=== PATIENT | male | born 1960 | race Caucasian/White ===

== ENCOUNTER 2019-12-09 09:52 | Outpatient (REF) | payer BC, SELFPAY ==
[2019-12-09 11:35] LABS: Estimated Average Glucose 131 mg/dL; Hemoglobin A1c % 6.2 %
[2019-12-09 11:51] LABS: Alanine Aminotransferase 17 U/L (0-40); Albumin Level 4.4 g/dL (3.5-5.0); Alkaline Phosphatase 55 U/L (39-117); Anion Gap 11 (12-20); Aspartate Amino Transferase 34 U/L (5-37); Bilirubin Total 0.7 mg/dL (0.0-1.0); Blood Urea Nitrogen 19 mg/dL (9-16); Calcium 8.4 mg/dL (8.4-10.2); Carbon Dioxide 28 mmol/L (22-29); Chloride 107 mmol/L (96-108); Cholesterol 157 mg/dL; Estimated Glomerular Filt Rate > 60; Glucose Fasting 124 mg/dL (60-99); HDL Cholesterol 59 mg/dL; LDL Cholesterol Calculated 90 mg/dl; Potassium 4.2 mmol/l (3.3-5.1); Sodium 142 mmol/L (135-145); Total Protein 7.2 g/dL (6.5-8.0); Triglycerides 42 mg/dL
== END 2019-12-09 09:53 | disposition home or self-care (01) ==
LOC: HO.MANLR 09:52
PROVIDERS: PCP Internal Medicine; Visit Provider Internal Medicine
DX: E11.9 Type 2 diabetes mellitus without complications (principal); I10 Essential (primary) hypertension
CPT/HCPCS: 80053; 80061; 83036

== ENCOUNTER 2020-01-02 17:51 | Outpatient (REF) | payer BC, SELFPAY ==
--- NOTE | 2020-01-02 18:15 | MR_ITS ---
EXAMINATION: BRAIN MRI WITHOUT CONTRAST CLINICAL INFORMATION: Tinnitus. Left-sided numbness. Previous history of stroke. COMPARISON: No relevant prior imaging. TECHNIQUE: Multiplanar MR imaging the brain was performed without contrast. FINDINGS: There are numerous foci of T2 FLAIR signal hyperintensity within the periventricular white matter that most likely represent a chronic manifestation of small vessel ischemia. No acute territorial infarct. No pathological magnetic susceptibility artifact. Intracranial vascular flow voids are maintained. There is no mastoid or middle ear effusion. Moderate paranasal sinus disease with near total opacification of the ethmoid air cells. Globes and orbits are symmetric. MR/MR head/brain wo con IMPRESSION: There are scattered chronic small vessel ischemic changes within the periventricular white matter. No evidence of acute territorial infarct or hemorrhage.
== END 2020-01-02 17:52 | disposition home or self-care (01) ==
LOC: HO.MRI 17:51
PROVIDERS: Visit Provider Internal Medicine
DX: I69.90 Unspecified sequelae of unspecified cerebrovascular disease (principal); H93.19 Tinnitus, unspecified ear; R20.0 Anesthesia of skin
CPT/HCPCS: 70551

== ENCOUNTER 2020-07-20 07:38 | Outpatient (REF) | payer BC, SELFPAY ==
[2020-07-20 12:12] LABS: Alanine Aminotransferase 14 U/L (0-40); Albumin Level 4.3 g/dL (3.5-5.0); Alkaline Phosphatase 55 U/L (39-117); Anion Gap 11 (12-20); Aspartate Amino Transferase 34 U/L (5-37); Bilirubin Total 0.4 mg/dL (0.0-1.0); Blood Urea Nitrogen 19 mg/dL (9-16); Calcium 8.7 mg/dL (8.4-10.2); Carbon Dioxide 27 mmol/L (22-29); Chloride 108 mmol/L (96-108); Cholesterol 176 mg/dL; Estimated Glomerular Filt Rate > 60; Glucose Fasting 119 mg/dL (60-99); HDL Cholesterol 60 mg/dL; LDL Cholesterol Calculated 105 mg/dl; Potassium 4.2 mmol/L (3.3-5.1); Sodium 142 mmol/L (135-145); Triglycerides 55 mg/dL
[2020-07-20 12:45] LABS: Prostate Specific Antigen 0.82 ng/mL (<0.05-4.0)
[2020-07-20 13:13] LABS: Estimated Average Glucose 120 mg/dL; Hemoglobin A1c % 5.8 %
== END 2020-07-20 07:39 | disposition home or self-care (01) ==
LOC: HO.MANLDS 07:38
PROVIDERS: PCP Internal Medicine; Visit Provider Internal Medicine
DX: E11.9 Type 2 diabetes mellitus without complications (principal); Z12.5 Encounter for screening for malignant neoplasm of prostate
CPT/HCPCS: 36415; 80053; 80061; 83036; 84153

== ENCOUNTER 2020-11-12 15:00 | Outpatient (REF) | payer BC, SELFPAY ==
[2020-11-12 18:23] LABS: Estimated Average Glucose 148 mg/dL; Hemoglobin A1c % 6.8 %
== END 2020-11-12 15:01 | disposition home or self-care (01) ==
LOC: HO.MANLDS 15:00
PROVIDERS: PCP Internal Medicine; Visit Provider Internal Medicine
DX: E11.9 Type 2 diabetes mellitus without complications (principal)
CPT/HCPCS: 36415; 83036

== ENCOUNTER 2021-02-22 08:55 | Outpatient (REF) | payer BC, SELFPAY ==
[2021-02-22 11:14] LABS: Estimated Average Glucose 180 mg/dL; Hemoglobin A1c % 7.9 %
[2021-02-22 11:40] LABS: Alanine Aminotransferase 23 U/L (0-40); Albumin Level 4.3 g/dL (3.5-5.0); Alkaline Phosphatase 63 U/L (39-117); Anion Gap 13 (12-20); Aspartate Amino Transferase 28 U/L (5-37); Bilirubin Total 0.7 mg/dL (0.0-1.0); Blood Urea Nitrogen 19 mg/dL (9-16); Calcium 9.5 mg/dL (8.4-10.2); Carbon Dioxide 23 mmol/L (22-29); Chloride 107 mmol/L (96-108); Cholesterol 133 mg/dL; Estimated Glomerular Filt Rate > 60; Glucose Fasting 162 mg/dL (60-99); HDL Cholesterol 48 mg/dL; LDL Cholesterol Calculated 74 mg/dl; Potassium 4.1 mmol/L (3.3-5.1); Sodium 139 mmol/L (135-145); Total Protein 7.3 g/dL (6.5-8.0); Triglycerides 55 mg/dL
[2021-02-22 14:35] LABS: Creatinine Urine 91.88 mg/dL; Microalbum/Creatinine Ratio Ur 5.4 ug/mg cr
== END 2021-02-22 08:56 | disposition home or self-care (01) ==
LOC: HO.MANLDS 08:55
PROVIDERS: PCP Internal Medicine; Visit Provider Internal Medicine
DX: E11.9 Type 2 diabetes mellitus without complications (principal)
CPT/HCPCS: 36415; 80053; 80061; 82043; 83036

== ENCOUNTER 2021-05-29 07:52 | Outpatient (REF) | payer BC, SELFPAY ==
[2021-05-29 11:53] LABS: Estimated Average Glucose 163 mg/dL; Hemoglobin A1c % 7.3 %
== END 2021-05-29 07:53 | disposition home or self-care (01) ==
LOC: HO.MANLDS 07:52
PROVIDERS: PCP Internal Medicine; Visit Provider Internal Medicine
DX: E11.9 Type 2 diabetes mellitus without complications (principal)
CPT/HCPCS: 36415; 83036

== ENCOUNTER 2021-09-06 07:34 | Outpatient (REF) | payer BC, SELFPAY ==
[2021-09-06 12:19] LABS: Creatinine Urine 40.06 mg/dL; Microalbumin Urine < 5.0 mg/L
== END 2021-09-06 07:35 | disposition home or self-care (01) ==
LOC: HO.MANLDS 07:34
PROVIDERS: Visit Provider Internal Medicine
DX: E11.9 Type 2 diabetes mellitus without complications (principal)
CPT/HCPCS: 82043

== ENCOUNTER 2021-09-24 07:33 | Outpatient (REF) | payer BC, SELFPAY ==
[2021-09-24 11:20] LABS: Estimated Average Glucose 169 mg/dL; Hemoglobin A1c % 7.5 %
== END 2021-09-24 07:34 | disposition home or self-care (01) ==
LOC: HO.MANLDS 07:33
PROVIDERS: Visit Provider Internal Medicine
DX: E11.9 Type 2 diabetes mellitus without complications (principal)
CPT/HCPCS: 36415; 83036

== ENCOUNTER 2021-12-13 07:58 | Outpatient (REF) | payer BC, SELFPAY ==
[2021-12-13 11:58] LABS: Estimated Average Glucose 166 mg/dL; Hemoglobin A1c % 7.4 %
== END 2021-12-13 07:59 | disposition home or self-care (01) ==
LOC: HO.MANLDS 07:58
PROVIDERS: Visit Provider Internal Medicine
DX: E11.9 Type 2 diabetes mellitus without complications (principal)
CPT/HCPCS: 36415; 83036

== ENCOUNTER 2022-03-17 07:53 | Outpatient (REF) | payer BC, SELFPAY ==
[2022-03-17 12:04] LABS: Estimated Average Glucose 246 mg/dL; Hemoglobin A1c % 10.2 %
== END 2022-03-17 07:54 | disposition home or self-care (01) ==
LOC: HO.MANLDS 07:53
PROVIDERS: Visit Provider Internal Medicine
DX: E11.9 Type 2 diabetes mellitus without complications (principal)
CPT/HCPCS: 36415; 83036

== ENCOUNTER 2022-07-08 16:20 | Outpatient (REF) | payer BC, SELFPAY ==
[2022-07-08 17:50] LABS: Estimated Average Glucose 148 mg/dL; Hemoglobin A1c % 6.8 %
[2022-07-08 18:33] LABS: Alanine Aminotransferase 14 U/L (0-40); Albumin Level 4.1 g/dL (3.5-5.0); Alkaline Phosphatase 54 U/L (39-117); Anion Gap 11 (12-20); Aspartate Amino Transferase 24 U/L (5-37); Bilirubin Total 0.3 mg/dL (0.0-1.0); Blood Urea Nitrogen 18 mg/dL (9-16); Carbon Dioxide 28 mmol/L (22-29); Chloride 105 mmol/L (96-108); Estimated Glomerular Filt Rate > 60; Glucose Random 231 mg/dL (60-115); Potassium 3.9 mmol/L (3.3-5.1); Sodium 140 mmol/L (135-145); Total Protein 6.8 g/dL (6.5-8.0)
[2022-07-08 18:34] LABS: Creatinine Urine 28.66 mg/dL; Microalbumin Urine < 5.0 mg/L
== END 2022-07-08 16:21 | disposition home or self-care (01) ==
LOC: HO.MANLDS 16:20
PROVIDERS: Visit Provider Internal Medicine
DX: E11.9 Type 2 diabetes mellitus without complications (principal)
CPT/HCPCS: 36415; 80053; 82043; 83036

== ENCOUNTER 2022-07-11 07:45 | Outpatient (REF) | payer BC, SELFPAY ==
[2022-07-11 12:22] LABS: Cholesterol 179 mg/dL; HDL Cholesterol 59 mg/dL; LDL Cholesterol Calculated 108 mg/dl; Triglycerides 63 mg/dL
== END 2022-07-11 07:46 | disposition home or self-care (01) ==
LOC: HO.MANLDS 07:45
PROVIDERS: Visit Provider Internal Medicine
DX: E11.9 Type 2 diabetes mellitus without complications (principal)
CPT/HCPCS: 36415; 80061

== ENCOUNTER 2022-10-27 08:23 | Outpatient (REF) | payer BC, SELFPAY ==
[2022-10-27 15:15] LABS: Estimated Average Glucose 197 mg/dL; Hemoglobin A1c % 8.5 % (<6.0)
== END 2022-10-27 08:24 | disposition home or self-care (01) ==
LOC: HO.MANLDS 08:23
PROVIDERS: Visit Provider Internal Medicine
DX: E11.9 Type 2 diabetes mellitus without complications (principal)
CPT/HCPCS: 36415; 83036

== ENCOUNTER 2022-12-26 07:32 | Outpatient (REF) | payer BC, SELFPAY ==
[2022-12-26 13:26] LABS: MANUAL DIFF FLAG NO
[2022-12-26 13:40] LABS: Basophils Absolute Auto 0.1 X10*3/uL (0.0-0.2); Basophils Percent Auto 1.3 % (0-2); Eosinophils Absolute Auto 0.1 X10*3/uL (0.0-0.4); Eosinophils Percent Auto 2.2 % (0-4); Hematocrit 41.5 % (42.0-52.0); Hemoglobin 13.8 g/dl (14.0-18.0); Imm Gran Abs Auto 0.01 X10*3/uL (0.00-0.03); Imm Gran Pct Auto 0.2 % (0.0-0.4); Lymphocytes Absolute Auto 1.7 X10*3/uL (1.2-4.9); Lymphocytes Percent Auto 30.7 % (20-40); Mean Corpuscular HGB Conc 33.3 g/dl (31.0-36.0); Mean Corpuscular Hemoglobin 29.8 pg (27.0-33.0); Mean Corpuscular Volume 89.6 fL (80.0-98.0); Mean Platelet Volume 10.2 fL (9.4-12.4); Monocytes Absolute Auto 0.4 X10*3/uL (0.1-1.2); Monocytes Percent Auto 6.7 % (2-11); Neutrophils Absolute Auto 3.3 x10*3/uL (2.0-8.3); Neutrophils Percent Auto 58.9 % (45-73); Platelet Count 189 X10*3/uL (160-400); Red Blood Count 4.63 X10*6/uL (4.60-5.80); Red Cell Distribution Width 12.7 % (11.0-16.0); White Blood Count 5.5 X10*3/uL (4.8-10.8)
[2022-12-26 14:21] LABS: Alanine Aminotransferase 14 U/L (0-40); Albumin Level 4.3 g/dL (3.5-5.0); Alkaline Phosphatase 52 U/L (39-117); Anion Gap 13 (12-20); Aspartate Amino Transferase 31 U/L (5-37); Bilirubin Total 0.6 mg/dL (0.0-1.0); Blood Urea Nitrogen 21 mg/dL (9-16); Calcium 9.2 mg/dL (8.4-10.2); Carbon Dioxide 26 mmol/L (22-29); Chloride 105 mmol/L (96-108); Cholesterol 164 mg/dL (<200); Estimated Glomerular Filt Rate > 60; Glucose Random 152 mg/dL (60-115); HDL Cholesterol 49 mg/dL (>40); LDL Cholesterol Calculated 104 mg/dL (<100); Potassium 4.1 mmol/L (3.3-5.1); Sodium 140 mmol/L (135-145); Total Protein 7.3 g/dL (6.5-8.0); Triglycerides 56 mg/dL (<150)
[2022-12-26 14:28] LABS: Creatinine Urine 71.25 mg/dL; Microalbumin Urine < 5.0 mg/L
[2022-12-26 16:13] LABS: Estimated Average Glucose 177 mg/dL; Hemoglobin A1c % 7.8 % (<6.0)
== END 2022-12-26 07:33 | disposition home or self-care (01) ==
LOC: HO.MANLDS 07:32
PROVIDERS: Visit Provider Internal Medicine
DX: E11.9 Type 2 diabetes mellitus without complications (principal); E78.00 Pure hypercholesterolemia, unspecified
CPT/HCPCS: 36415; 80053; 80061; 82043; 82570; 83036; 85025

== ENCOUNTER 2023-03-04 07:34 | Outpatient (REF) | payer BC, SELFPAY ==
[2023-03-04 12:44] LABS: MANUAL DIFF FLAG NO
[2023-03-04 12:48] LABS: Basophils Absolute Auto 0.1 X10*3/uL (0.0-0.2); Basophils Percent Auto 1.1 % (0-2); Eosinophils Absolute Auto 0.2 X10*3/uL (0.0-0.4); Eosinophils Percent Auto 3.8 % (0-4); Hematocrit 39.8 % (42.0-52.0); Hemoglobin 13.2 g/dl (14.0-18.0); Imm Gran Abs Auto 0.01 X10*3/uL (0.00-0.03); Imm Gran Pct Auto 0.2 % (0.0-0.4); Lymphocytes Absolute Auto 1.4 X10*3/uL (1.2-4.9); Lymphocytes Percent Auto 29.3 % (20-40); Mean Corpuscular HGB Conc 33.2 g/dl (31.0-36.0); Mean Corpuscular Hemoglobin 29.6 pg (27.0-33.0); Mean Corpuscular Volume 89.2 fL (80.0-98.0); Mean Platelet Volume 10.6 fL (9.4-12.4); Monocytes Absolute Auto 0.4 X10*3/uL (0.1-1.2); Monocytes Percent Auto 8.1 % (2-11); Neutrophils Absolute Auto 2.7 x10*3/uL (2.0-8.3); Neutrophils Percent Auto 57.5 % (45-73); Platelet Count 197 X10*3/uL (160-400); Red Blood Count 4.46 X10*6/uL (4.60-5.80); Red Cell Distribution Width 12.8 % (11.0-16.0); White Blood Count 4.7 X10*3/uL (4.8-10.8)
[2023-03-04 13:01] LABS: Estimated Average Glucose 171 mg/dL; Hemoglobin A1c % 7.6 % (<6.0)
[2023-03-04 13:14] LABS: Alanine Aminotransferase 52 U/L (0-40); Albumin Level 4.3 g/dL (3.5-5.0); Alkaline Phosphatase 51 U/L (39-117); Anion Gap 14 (12-20); Aspartate Amino Transferase 69 U/L (5-37); Bilirubin Total 0.3 mg/dL (0.0-1.0); Blood Urea Nitrogen 26 mg/dL (9-16); Calcium 9.4 mg/dL (8.4-10.2); Carbon Dioxide 23 mmol/L (22-29); Chloride 107 mmol/L (96-108); Cholesterol 157 mg/dL (<200); Estimated Glomerular Filt Rate > 60; Glucose Random 181 mg/dL (60-115); HDL Cholesterol 48 mg/dL (>40); LDL Cholesterol Calculated 92 mg/dL (<100); Sodium 140 mmol/L (135-145); Total Protein 7.3 g/dL (6.5-8.0); Triglycerides 88 mg/dL (<150)
== END 2023-03-04 07:35 | disposition home or self-care (01) ==
LOC: HO.MANLDS 07:34
PROVIDERS: Visit Provider Internal Medicine
DX: E11.9 Type 2 diabetes mellitus without complications (principal); E78.00 Pure hypercholesterolemia, unspecified
CPT/HCPCS: 36415; 80053; 80061; 83036; 85025

== ENCOUNTER 2023-03-27 07:47 | Outpatient (REF) | payer BC, SELFPAY ==
[2023-03-27 13:01] LABS: Alanine Aminotransferase 257 U/L (0-40); Albumin Level 4.2 g/dL (3.5-5.0); Alkaline Phosphatase 59 U/L (39-117); Aspartate Amino Transferase 221 U/L (5-37); Bilirubin Direct 0.2 mg/dL (0.0-0.5); Bilirubin Total 0.3 mg/dL (0.0-1.0); Total Protein 7.2 g/dL (6.5-8.0)
== END 2023-03-27 07:48 | disposition home or self-care (01) ==
LOC: HO.MANLDS 07:47
PROVIDERS: Visit Provider Internal Medicine
DX: R74.01 Elevation of levels of liver transaminase levels (principal)
CPT/HCPCS: 36415; 80076

== ENCOUNTER 2023-04-07 09:49 | Outpatient (REF) | payer BC, SELFPAY ==
[2023-04-07 14:22] LABS: Alanine Aminotransferase 192 U/L (0-40); Albumin Level 4.2 g/dL (3.5-5.0); Alkaline Phosphatase 61 U/L (39-117); Aspartate Amino Transferase 137 U/L (5-37); Bilirubin Direct 0.1 mg/dL (0.0-0.5); Bilirubin Total 0.3 mg/dL (0.0-1.0); Iron 51 mcg/dL (45-160); Percent Iron Saturation 19 % (15-50); Total Iron Binding Capacity 264 mcg/dL (228-428); Total Protein 7.1 g/dL (6.5-8.0); Unsaturated Iron Binding 213 ug/dL
[2023-04-07 14:28] LABS: Ferritin 82 ng/mL (20-250)
== END 2023-04-07 09:50 | disposition home or self-care (01) ==
LOC: HO.MANLDS 09:49
PROVIDERS: Visit Provider Internal Medicine
DX: R74.01 Elevation of levels of liver transaminase levels (principal)
CPT/HCPCS: 36415; 80076; 82728; 83540

== ENCOUNTER 2023-04-22 07:58 | Outpatient (REF) | payer BC, SELFPAY ==
[2023-04-22 13:32] LABS: Alanine Aminotransferase 65 U/L (0-40); Albumin Level 4.3 g/dL (3.5-5.0); Alkaline Phosphatase 59 U/L (39-117); Aspartate Amino Transferase 59 U/L (5-37); Bilirubin Direct 0.2 mg/dL (0.0-0.5); Bilirubin Total 0.6 mg/dL (0.0-1.0); Total Protein 7.6 g/dL (6.5-8.0)
[2023-04-22 15:07] LABS: Estimated Average Glucose 146 mg/dL; Hemoglobin A1c % 6.7 % (<6.0)
== END 2023-04-22 07:59 | disposition home or self-care (01) ==
LOC: HO.MANLDS 07:58
PROVIDERS: Visit Provider Internal Medicine
DX: E11.9 Type 2 diabetes mellitus without complications (principal)
CPT/HCPCS: 36415; 80076; 83036

== ENCOUNTER 2023-04-29 08:01 | Outpatient (REF) | payer BC, SELFPAY ==
[2023-04-29 13:39] LABS: Alanine Aminotransferase 35 U/L (0-40); Albumin Level 4.3 g/dL (3.5-5.0); Alkaline Phosphatase 55 U/L (39-117); Aspartate Amino Transferase 41 U/L (5-37); Bilirubin Direct 0.1 mg/dL (0.0-0.5); Bilirubin Total 0.3 mg/dL (0.0-1.0); Total Protein 7.2 g/dL (6.5-8.0)
== END 2023-04-29 08:02 | disposition home or self-care (01) ==
LOC: HO.MANLDS 08:01
PROVIDERS: Visit Provider Internal Medicine
DX: R74.01 Elevation of levels of liver transaminase levels (principal)
CPT/HCPCS: 36415; 80076

== ENCOUNTER 2023-06-23 09:57 | Outpatient (REF) | payer BC, SELFPAY ==
[2023-06-23 13:41] LABS: Estimated Average Glucose 143 mg/dL; Hemoglobin A1c % 6.6 % (<6.0)
== END 2023-06-23 09:58 | disposition home or self-care (01) ==
LOC: HO.MANLDS 09:57
PROVIDERS: Visit Provider Internal Medicine
DX: E11.9 Type 2 diabetes mellitus without complications (principal); R74.01 Elevation of levels of liver transaminase levels
CPT/HCPCS: 36415; 83036

== ENCOUNTER 2023-08-12 14:30 | Outpatient (REF) | payer BC, SELFPAY ==
[2023-08-12 16:08] LABS: MANUAL DIFF FLAG NO
[2023-08-12 16:14] LABS: Basophils Absolute Auto 0.1 X10*3/uL (0.0-0.2); Basophils Percent Auto 0.9 % (0-2); Eosinophils Absolute Auto 0.2 X10*3/uL (0.0-0.4); Eosinophils Percent Auto 2.4 % (0-4); Hematocrit 38.8 % (42.0-52.0); Hemoglobin 13.2 g/dl (14.0-18.0); Imm Gran Abs Auto 0.01 X10*3/uL (0.00-0.03); Imm Gran Pct Auto 0.1 % (0.0-0.4); Lymphocytes Absolute Auto 1.9 X10*3/uL (1.2-4.9); Lymphocytes Percent Auto 28.1 % (20-40); Mean Corpuscular Hemoglobin 30.6 pg (27.0-33.0); Mean Corpuscular Volume 89.8 fL (80.0-98.0); Mean Platelet Volume 10.5 fL (9.4-12.4); Monocytes Absolute Auto 0.4 X10*3/uL (0.1-1.2); Monocytes Percent Auto 6.1 % (2-11); Neutrophils Absolute Auto 4.2 x10*3/uL (2.0-8.3); Neutrophils Percent Auto 62.4 % (45-73); Platelet Count 205 X10*3/uL (160-400); Red Blood Count 4.32 X10*6/uL (4.60-5.80); White Blood Count 6.7 X10*3/uL (4.8-10.8)
[2023-08-12 16:37] LABS: Alanine Aminotransferase 16 U/L (0-40); Albumin Level 4.4 g/dL (3.5-5.0); Alkaline Phosphatase 54 U/L (39-117); Anion Gap 12 (12-20); Aspartate Amino Transferase 27 U/L (5-37); Bilirubin Total 0.2 mg/dL (0.0-1.0); Blood Urea Nitrogen 21 mg/dL (9-16); Calcium 9.8 mg/dL (8.4-10.2); Carbon Dioxide 27 mmol/L (22-29); Chloride 104 mmol/L (96-108); Estimated Glomerular Filt Rate > 60; Glucose Random 279 mg/dL (60-115); Potassium 4.2 mmol/L (3.3-5.1); Sodium 139 mmol/L (135-145); Total Protein 7.5 g/dL (6.5-8.0)
[2023-08-12 17:16] LABS: Erythrocyte Sedimentation Rate 10 MM/HR (0-15)
== END 2023-08-12 14:31 | disposition home or self-care (01) ==
LOC: HO.MANLDS 14:30
PROVIDERS: Visit Provider Internal Medicine
DX: K57.32 Diverticulitis of large intestine without perforation or abscess without bleeding (principal)
CPT/HCPCS: 36415; 80053; 85025; 85652

== ENCOUNTER 2023-11-13 07:46 | Outpatient (REF) | payer BC, SELFPAY ==
[2023-11-13 13:35] LABS: Estimated Average Glucose 249 mg/dL; Hemoglobin A1C 318.9649 umol/L; Hemoglobin A1c % 10.3 % (<6.0); Total Hemoglobin (HGBA1C) 3601.7119 umol/L
== END 2023-11-13 07:47 | disposition home or self-care (01) ==
LOC: HO.MANLDS 07:46
PROVIDERS: Visit Provider Internal Medicine
DX: E11.9 Type 2 diabetes mellitus without complications (principal)
CPT/HCPCS: 36415; 83036

== ENCOUNTER 2024-06-15 14:51 | Outpatient (REF) | payer BC, SELFPAY ==
--- OUTSIDE RECORDS SUMMARY | 2024-06-15 15:58 | XMS_ITS | Data Portability ---
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) [facility] MODERATE MUST MEET 2 OUT OF 3 ELEMENTS: PROBLEMS, DATA OR RISK ELEMENT 1: PROBLEMS ADDRESSED 1 OR MORE CHRONIC ILLNESS WITH EXACERBATION OR 2 OR MORE STABLE CHRONIC ILLNESSES OR 1 UNDIAGNOSED NEW PROBLEM OR 1 ACUTE ILLNESS W/SYMPTOMS OR 1 ACUTE COMPLICATED INJURY ELEMENT 2: DATA MUST MEET 1 OF 3 CATEGORIES CATEGORY 1: REVIEW OF PRIOR EXTERNAL NOTES, REVIEW OF RESULTS, ORDERING OF EACH TEST, ASSESSMENT REQUIRING INDEPENDENT HISTORIAN OR CATEGORY 2: INDEPENDENT INTERPRETATION OF TESTS BY ANOTHER PHYSICIAN OR SPECIALIST OR CATEGORY 3: DISCUSSION OF MGT OR TEST INTERPRETATION W/EXTERNAL PHYSICIAN OR SPECIALIST ELEMENT 3: RISK RISK OF COMPLICATIONS AND/OR MORBIDITY OR MORTALITY OF PATIENT MANAGEMENT PROVIDER MUST THOROUGHLY DOCUMENT EACH ELEMENT THAT IS COVERED Not available 06/23/2023 09:47:26 10/28/2023 10/28/2023 [id number] [place] [address] (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) [facility] MODERATE MUST MEET 2 OUT OF 3 ELEMENTS: PROBLEMS, DATA OR RISK ELEMENT 1: PROBLEMS ADDRESSED 1 OR MORE CHRONIC ILLNESS WITH EXACERBATION OR 2 OR MORE STABLE CHRONIC ILLNESSES OR 1 UNDIAGNOSED NEW PROBLEM OR 1 ACUTE ILLNESS W/SYMPTOMS OR 1 ACUTE COMPLICATED INJURY ELEMENT 2: DATA MUST MEET 1 OF 3 CATEGORIES CATEGORY 1: REVIEW OF PRIOR EXTERNAL NOTES, REVIEW OF RESULTS, ORDERING OF EACH TEST, ASSESSMENT REQUIRING INDEPENDENT HISTORIAN OR CATEGORY 2: INDEPENDENT INTERPRETATION OF TESTS BY ANOTHER PHYSICIAN OR SPECIALIST OR CATEGORY 3: DISCUSSION OF MGT OR TEST INTERPRETATION W/EXTERNAL PHYSICIAN OR SPECIALIST ELEMENT 3: RISK RISK OF COMPLICATIONS AND/OR MORBIDITY OR MORTALITY OF PATIENT MANAGEMENT PROVIDER MUST THOROUGHLY DOCUMENT EACH ELEMENT THAT IS COVERED Not available 10/28/2023 16:02:26 03/02/2024 03/02/2024 [address] [place] [address] (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) [facility] MODERATE MUST MEET 2 OUT OF 3 ELEMENTS: PROBLEMS, DATA OR RISK ELEMENT 1: PROBLEMS ADDRESSED 1 OR MORE CHRONIC ILLNESS WITH EXACERBATION OR 2 OR MORE STABLE CHRONIC ILLNESSES OR 1 UNDIAGNOSED NEW PROBLEM OR 1 ACUTE ILLNESS W/SYMPTOMS OR 1 ACUTE COMPLICATED INJURY ELEMENT 2: DATA MUST MEET 1 OF 3 CATEGORIES CATEGORY 1: REVIEW OF PRIOR EXTERNAL NOTES, REVIEW OF RESULTS, ORDERING OF EACH TEST, ASSESSMENT REQUIRING INDEPENDENT HISTORIAN OR CATEGORY 2: INDEPENDENT INTERPRETATION OF TESTS BY ANOTHER PHYSICIAN OR SPECIALIST OR CATEGORY 3: DISCUSSION OF MGT OR TEST INTERPRETATION W/EXTERNAL PHYSICIAN OR SPECIALIST ELEMENT 3: RISK RISK OF COMPLICATIONS AND/OR MORBIDITY OR MORTALITY OF PATIENT MANAGEMENT PROVIDER MUST THOROUGHLY DOCUMENT EACH ELEMENT THAT IS COVERED Not available 03/02/2024 16:29:48 Plan of Treatment Reminders Order Date Submit Date Provider Last Modified By Organization Details Last Modified Time Details Appointments INJECTION 2024 03:00P M DR PUTNAM Not available Not available Not available Lab HbA1c (hemoglob in A1c), blood 2023 024 [facility], [address] [place] [address], [place], [address], 10/28/2023 16:09:08 CBC w/ auto diff 2023 024 [facility], [address] [place] [address], [address], 08/13/2023 11:05:35 ESR (erythroc yte sedimenta tion rate), blood 2023 024 [facility], [address] [place] [address], [place], [address], 08/12/2023 14:36:29 CMP, serum or plasma 2023 024 [facility], [address] [place] [address], [address], 08/13/2023 11:05:35 Referral general surgeon referral - new onset while shoveling 2023 024 [email or web address] A Malvin Chiu, [address], [address], [place], [address], 06/24/2023 08:25:19 Procedures None recorded. Surgeries None recorded. Imaging CT, abdomen, w/ contrast - Not Required Procedure codes: [id number] Reference #: [id number] 1Resoluti on: Completed on 4 at 04:43 pm. Call ref #[id number] 11. 2023 024 [email or web address] Not available 09/11/2023 09:52:55 Medication Orders ciproflox acin 500 mg tablet 2023 024 [facility] [employer] [id number], [address] [place], [place], [id number], 08/28/2023 16:02:49 metronida zole 500 mg tablet 2023 024 [id number], [address] [place], [place], [id number], 08/28/2023 16:02:47 Patient TargetsNo targets recorded. Patient InstructionsNo instructions recorded. Reason for Referral General Surgeon Referral for Right inguinal hernia new onset while shoveling Referring Physician: Allen Putnam, Internal Medicine, Encounter Date: 06/23/2023 Results Created Date Observation Date Name Description Value Unit Range Abnormal Flag Note LastModifiedBy Organization Detail LastModifiedTime 11/13/1911/13/2023 HbA1c (hemo globi n A1c), blood A1C 10.3 abnormal Not Available [facility] (Medical Records) [address] [facility], [place], [address], 11/16/2023 15:14:13 10/29/19 24 10/26/2023 CT, abdom en, w/ contr ast No observ ation record ed. [facility] [address], [place], [address], 10/30/2023 08:41:38 Result Notes None recorded. Problems Name Problem SNOMED Code Status Onset Date Resolution Date Notes Provider Name and Address Organization Details Recorded Time Primary erectile dysfunct ion 633167835 Active 2017 Not Available [facility] 13:19:53 Labile hyperten arvind due to being in a clinical environm ent 625638278 Active 2019 Not Available [facility] 13:19:53 Hypercho lesterol emia 75420895 Active 2021 Allen Putnam, DO [address] [place] [address], [phone], [facility] 2 17:00:22 Acute sinusiti s 91555162 Completed 202203/09/2023 Allen Putnam DO [address] [place] [address], [phone], [facility] 4 12:28:54 Headache 69822758 Completed 202203/09/2023 Allen Putnam, DO [address] [place] [address], [phone], [facility] 4 12:28:49 Cervical spine sprain 65334141227 108 Completed 202203/09/2023 Allen Putnam DO [address] [place] [address], [phone], [facility] 4 12:28:42 Liver enzymes level above referenc e range 036355793 Active 2023 Allen Putnam, DO [address] [place] [address], [address], [facility] 4 12:29:32 Hyperten sive disorder 94589993 Active 2017 Not Available [facility] 13:19:53 Diabetes mellitus 64901569 Active 2017 Not Available [facility] 13:19:53 Cerebrov ascular accident 387415033 Active 2017 Not Available [facility] 1 13:19:53 Right inguinal hernia 845694885 Active 2023 Allen Still Luiseboni, DO [address] [place], [address], [facility] 4 09:49:06 Divertic ulitis of colon 580374047 Active 2023 Allen Still Kristel, DO [address] [place], [address], [facility] 4 14:22:32 Abdomina l pain 97648619 Active 2023 Allen Still Kristel, [address] [place], [address], [facility] 4 16:39:40 Problem Notes None recorded. Procedures Surgical History None recorded. Imaging Results Imaging Date Name Status LastModified by Organiz ation Details LastModified Time 10/26/2023 CT, abdomen, w/ contrast completed [facility] [address] [place], [address], 10/30/2023 08:41:38 Procedure Notes None recorded. Medical Equipment None Reported. Allergies No known drug allergies Medications Name Sig Start Date Stop Date Status Note LastModified by Organization Details LastModified Time Prescriptio n - Prior Authorizati on Request 08/28 completed Not Available Not Available Not Available atorvastati n 40 mg tablet 05/22 completed Not Available Not Available Not Available metformin 500 mg tablet take 1 tablet once day 11/05 completed Not Available Not Available Not Available atorvastati n 80 mg tablet TAKE 1 TABLET(80 MG) BY MOUTH DAILY 12/11 completed Not Available Not Available Not Available sildenafil 50 mg tablet 11/06 completed Not Available Not Available Not Available atorvastati n 10 mg tablet TAKE 1 TABLET BY MOUTH EVERY DAY 04/13 completed Not Available Not Available Not Available hydrocodone 5 mg-acetamin ophen 325 mg tablet 07/26 completed Not Available Not Available Not Available meloxicam 15 mg tablet 03/08 completed Not Available Not Available Not Available metronidazo le 500 mg tablet TAKE 1 TABLET BY MOUTH EVERY 8 HOURS FOR 7 DAYS 08/27 completed Not Available Not Available Not Available amlodipine 5 mg tablet TAKE 1 TABLET BY MOUTH EVERY DAY 06/03 completed Not Available Not Available Not Available ciprofloxac in 500 mg tablet TAKE 1 TABLET BY MOUTH EVERY 12 HOURS FOR 10 DAYS 08/27 completed Not Available Not Available Not Available sildenafil 100 mg tablet Take 1 tablet every day by oral route as needed. 11/06 completed Not Available Not Available Not Available butalbital- acetaminoph en-caffeine 50 mg-325 mg-40 mg tablet TAKE 1 TABLET BY MOUTH EVERY 4 HOURS FOR 3 DAYS NEEDED 01/07 completed Not Available Not Available Not Available oxycodone-a cetaminophe n 5 mg-325 mg tablet 02/17 completed Not Available Not Available Not Available amlodipine 10 mg tablet TAKE 1 TABLET BY MOUTH EVERY DAY active Not Available Not Available No t Available doxycycline monohydrate 100 mg capsule TAKE 2 CAPSULES BY MOUTH ONCE FOR 1 DOSE. TAKE WITH FOOD. USE RESERVE PILLS FOR FUTURE TICK BITES active Not Available Not Available No t Available metformin 1,000 mg tablet TAKE 1 TABLET BY MOUTH TWICE DAILY active Not Available Not Available No t Available diclofenac sodium 75 mg tablet,adam yed release Take 1 tablet twice a day by oral route for 10 days. 06/03 completed Not Available Not Available Not Available lisinopril 5 mg tablet Take 1 tablet every day by oral route for 30 days. 03/18 completed Not Available Not Available Not Available Baby Aspirin 81 mg chewable tablet Chew 1 tablet every day by oral route. active Not Available Not Available No t Available amoxicillin 875 mg-potassiu m clavulanate 125 mg tablet TAKE 1 TABLET BY MOUTH EVERY 12 HOURS FOR 10 DAYS 11/05 completed Not Available Not Available Not Available oxycodone 5 mg tablet 10/27 completed Not Available Not Available Not Available tadalafil 20 mg tablet TAKE 1 TABLET BY MOUTH ONCE DAILY NEEDED active Not Available Not Available No t Available sildenafil (bulk) 100 % powder 10/07 completed Not Available Not Available Not Available FreeStyle Lite Strips Take 1 strip every day by miscell. route for 25 days. 03/18 completed Not Available Not Available Not Available GaviLyte-G 236 gram-22.74 gram-6.74 gram-5.86 gram oral solution 10/01 completed Not Available Not Available Not Available AndroGel 1.62 % (40.5 mg/2.5 gram) transdermal gel packet Apply 1 packet every day by topical route for 30 days. 08/28 completed Not Available Not Available Not Available AndroGel 1.62 % (20.25 mg/1.25 gram) transdermal gel packet APPLY 1 PACKET BY TOPICAL ROUTE ONCE DAILY FOR 30 DAYS 08/28 completed Not Available Not Available Not Available Vitals Date Recorded Body height Body mass index (BMI) Body weight Heart rate Respiratory rate Oxygen saturation Oxygen saturation in Arterial blood by Pulse oximetry Systolic blood pressure Diastolic blood pressure Provider Name and Address Organization Details Last Updated DateTime 4 175.26 cm 28.9 kg/m2 14857.1 g 74 /min 18 /min 96 % 96 % 136 mm[Hg] 80 mm[Hg] Jason Castaneda [facility] 4 09:28:08 Date Recorded Body height Body mass index (BMI) Body weight Heart rate Oxygen saturation Oxygen saturation in Arterial blood by Pulse oximetry Systolic blood pressure Diastolic blood pressure Provider Name and Address Organization Details Last Updated DateTime 4 175.26 cm 29.5 kg/m2 59707.4 7 g 79 /min 97 % 97 % 140 mm[Hg] 70 mm[Hg] Betzy Howard [facility] 4 13:49:51 Date Recorded Body height Body mass index (BMI) Body weight Heart rate Oxygen saturation Oxygen saturation in Arterial blood by Pulse oximetry Systolic blood pressure Diastolic blood pressure Provider Name and Address Organization Details Last Updated DateTime 4 175.26 cm 31.6 kg/m2 93976.7 7 g 69 /min 95 % 95 % 136 mm[Hg] 82 mm[Hg] Shari Christina [facility] 4 16:08:57 Date Recorded Body height Body mass index (BMI) Body weight Heart rate Oxygen saturation Oxygen saturation in Arterial blood by Pulse oximetry Systolic blood pressure Diastolic blood pressure Provider Name and Address Organization Details Last Updated DateTime 4 175.26 cm 29.5 kg/m2 79258.4 7 g 76 /min 98 % 98 % 126 mm[Hg] 76 mm[Hg] Jasonlouise Castaneda [facility] 4 15:53:54 Date Recorded Body height Body mass index (BMI) Body weight Oxygen saturation Oxygen saturation in Arterial blood by Pulse oximetry Heart rate Systolic blood pressure Diastolic blood pressure Provider Name and Address Organization Details Last Updated DateTime 5 175.26 cm 29.5 kg/m2 38383.4 7 g 96 % 96 % 76 /min 120 mm[Hg] 70 mm[Hg] Betzy Lovemond [facility] 5 16:06:21 Social History Question Answer Notes LastModified by Organizat ion Details LastModified Time Tobacco Smoking Status Former Smoker Not Available [facility] 12/13/2019 03:36:23 What Was The Date Of Your Most Recent Tobacco Screening? 03/02/2024 [email or web address] Information not available 03/02/2024 Do You Or Have You Ever Used Any Other Forms Of Tobacco Or Nicotine? No Information not available 12/11/2021 Sex: Unknown Functional Status None recorded. Mental Status None recorded. Family History Nothing Reported. Medical History No medical history recorded. Immunizations Vaccine Type Date Status Note Provider Nam e and Address Organization Details Recorded Time COVID-19, mRNA, LNP-S, PF, 30 mcg/0.3 mL dose 1 completed Not Available [facility] 01/27/2021 17:59:45 COVID-19, mRNA, LNP-S, PF, 30 mcg/0.3 mL dose 1 completed Allen Putnam, [address] [place] [address], [address], [facility] 06/03/2021 15:57:22 COVID-19, mRNA, LNP-S, PF, 30 mcg/0.3 mL dose 1 completed Allen Putnam DO [address] [place] [address], [address], [facility] 06/03/2021 15:57:28 Tdap 9 completed Allen Putnam DO [address] [place], [address], [facility] 06/03/2021 15:57:42 Influenza, split virus, quadrivalent, preservative 2 completed Allen Still Kristel, [address] [place] [address], [address], [facility] 12/11/2021 16:43:01 COVID-19, mRNA, LNP-S, PF, 30 mcg/0.3 mL dose 2 completed Allen Still Kristel [address] [place], [address], [facility] 12/11/2021 16:43:10 Past Encounters Encounter ID Performer Location Encounter Start Date Encounter Closed Date Diagnosis/Indication Diagnosis SNOMED-CT Code Diagnosis ICD10 Code Diagnosis Note [id number] Allen Putnam [facility] [address] [place] [address], [place] [address] 05/22/2017 10:26:37 05/22/2017 12:26:35 Diabetes mellitus 44720226 E11.9 waiting for a1c results Hypertensive disorder 38 231347 I10 home bp are excellent remain stable Cerebrovas cular accident 709834934 I63.9 still having issues with left parasthesi a Primary er ectile dysfunction 700054217 N52.1 [id number] Allen Putnam [facility] [address] [place] [address],[place] [address] 08/28/2017 14:26:57 08/28/2017 16:40:00 Cerebrovascular accident 686562069 I63.9 now feels good no issues active vigorous and with out major issue Hypogonadism 46419488 E2 9.1 will repeat level [id number] Allen Putnam [facility] [address] [place] [address], [place] [address] 10/05/2017 13:40:06 10/05/2017 14:29:11 Hypertensive disorder 88751073 I10 home bp are excellent remain stable will discontinu e the lisinopril and increase the amlodipine to 10mg Diabetes mellitus 899669 09 E11.9 a1c is 5.8 doing markedly well with 80 lb wgt loss will stop metformin and rechk in 3 mo Primary er ectile dysfunction 149597377 N52.1 will repeat the testostero ne and see if there is a drop as would be expected will try viagra 50mg [id number] Allen Putnam [facility] [address] [facility] [address],[place] [address] 11/06/2017 13:47:54 11/06/2017 14:16:52 Renewal of prescription 298883482 Z76.0 Primary er ectile dysfunction 909782583 N52.1 will plan to have pt see dr esthela pitts or wm saha as his ED is still having a major issue will hve him checked out his testostero ne level remained in 300's Hypertensive disorder 38 555762 I10 the amlodipine at10mg is working very well states is doing good but has not shown any improvemen t in libido [id number] Allen Putnam [facility] [address] [facility] [address],[place] [address] 02/17/2018 13:48:04 02/17/2018 19:17:16 Hypertensive disorder 67464401 I10 the amlodipine at10mg is working very well states is doing good but has not shown any improvemen t in libido Diabetes mellitus 223529 09 E11.9 a1c is 5.8 doing markedly well with 80 lb wgt loss will stop metformin and rechk in 3 mo Screening for malignant neoplasm of colon 018593174 Z12.11 Cervico-oc cipital neuralgia 06057167 M54.81 will treat conservati vely doncelio believe this is migraine [id number] Allen Putnam [facility] [address] [facility] [address],[place] [address] 06/11/2018 15:13:40 06/11/2018 15:33:01 Hypertensive disorder 07735232 I10 the amlodipine at10mg is working very well states is doing good but has not shown any improvemen t in libido Diabetes mellitus 667815 09 E11.9 a1c is not done yet and is doing markedly well with 80 lb wgt loss will stop metformin and rechk in 3 mo cont to have him stay as active as poss Cerebrovas cular accident 501107478 I63.9 now feels good no issues active vigorous and with out major issue Primary er ectile dysfunction 603662547 N52.1 will cont to use viagra when necess Lateral epicondylitis 20 8315702 M77.12 cont to tx conserv wearing brace [id number] Allen Putnam [facility] [address] [facility] [address],[place] [address] 10/01/2018 15:04:49 10/01/2018 15:57:54 Diabetes mellitus 10560359 E11.9 a1c is not done yet and is doing markedly well with 80 lb wgt loss will stop metformin and rechk in 3 mo cont to have him stay as active as poss Hypertensive disorder 38 573867 I10 the amlodipine at10mg is working very well states is doing good but has not shown any improvemen t in libido Primary er ectile dysfunction 524393024 N52.1 will cont to use viagra when necess Osteoarthritis of hip 23 1425577 M16.9 will need to see ne ortho will provide with back to work note [id number] Allen Putnam [facility] [address] [facility],[place] [address] 03/08/2019 10:37:13 03/08/2019 11:14:20 Pre-surgery evaluation 127733785 Z01.818 Per 2017 (revised) ACC guidelines patient is cleared for the proposed procedure. Patient may take his blood pressure medication the morning of the procedure. Hypertensive disorder 38 079217 I10 Well controlled with current meds Diabetes mellitus 579356 09 E11.9 A1C stable at 6.9 [id number] Allen Putnam DO [facility] [address] [facility],[place] [address] 07/27/2019 14:52:08 07/27/2019 15:24:41 Diabetes mellitus 39949597 E11.9 A1C is pending Hypertensive disorder 38 490219 I10 Well controlled with current meds [id number] Allen Putnam [facility] [address] [facility],[place] [address] 12/09/2019 13:44:51 12/09/2019 14:08:36 Hypertensive disorder 72380356 I10 Well controlled with current meds Diabetes mellitus 101545 09 E11.9 A1C is pending Tendinitis of right wrist region 6349487062 3425754 M67.833 and prob dequervain s tenosynovi tis will start with diclofenac and a wrist plint spica if no better we will have referral to hand spec [id number] Allen Putnam [facility] [address] [facility] [place] [address] 12/13/2019 15:57:13 12/13/2019 16:26:45 Cerebrovascular disease 25716815 I67.9 seems stable currently Late effec ts of cerebrovascular disease 118392961 I69.90 possible new RIND vs re-enervat ion of his previous lacunar infarct given the recent CT w contrast done yesterday was normal , this does not appear to be a new cva but we will obtain an MRI also , i feel we need to get an NCT as well he knows that if any further change occurs he goes to the ER he agrees Hypertensive disorder 38 493935 I10 Well controlled with current meds but is sl elevated given his level of stress and hx of white coat syndrome [id number] Allen Putnam [facility] [address] [facility],[place] [address] 04/03/2020 15:24:01 04/03/2020 16:34:01 Hypertensive disorder 20642236 I10 Well controlled with current meds but is sl elevated given his level of stress and hx of white coat syndrome Diabetes mellitus 805797 09 E11.9 A1C is pending has not been done [id number] Allen Putnam [facility] [address] [facility], [place] [address] 11/12/2020 14:16:19 11/12/2020 15:01:21 Cerebrovascular accident 400322791 I63.9 now feels good no issues active vigorous and with out major issue Diabetes mellitus 441283 09 E11.9 A1C is pending has not been done we will order Hypertensive disorder 38 751138 I10 Well controlled with current meds but is sl elevated given his level of stress and hx of white coat syndrome [id number] Allen Putnam [facility] [address] [facility] [address],[place] [address] 01/30/2021 08:29:28 01/30/2021 11:10:31 Diabetes mellitus 52511090 E11.9 has returned after a recent wgt gain of 18+ lbswe will cont the metformin for now 500 bidatorvas tat is back up to 80 mg will be seeing him next month Hypertensive disorder 38 339790 I10 Well controlled with current meds but is sl elevated given his level of stress and hx of white coat syndrome Benign par oxysmal positional vertigo 900640088 H81.13 still feels a little off but is much better than what he wasbut ER has set up a cardiac event recorder [id number] Allen Putnam [facility] [address] [facility] [address],[place] [address] 03/04/2021 08:18:44 03/05/2021 15:27:59 Diabetes mellitus 25325632 E11.9 a1c is 7.9 was 6.8 knows he has to get these numbers down has returned after a recent wgt gain of 18+ lbswe will cont the metformin for now 500 bidatorvas tat is back up to 80 mg will be seeing him next month Cerebrovas cular accident 848877011 I63.9 now feels good no issues active vigorous and with out major issuestill has the residual numbness from shoulder to waist and upper thigh more like a novacaine feeling Hypertensive disorder 38 592583 I10 Well controlled with current meds but is sl elevated given his level of stress and hx of white coat syndrome Primary er ectile dysfunction 449090660 N52.1 will cont to use viagra when necess [id number] Allen Putnam [facility] [address] [facility] [address],[place] [place] [address] 06/03/2021 15:53:28 06/03/2021 16:23:45 Hypertensive disorder [id number] I10 Well controlled with current meds but is sl elevated given his level of stress and hx of white coat syndrome Diabetes mellitus 863090 09 E11.9 a1c is now down to 7.3 was 7.9 was 6.8 knows he has to continue to get these numbers down has returned after a recent wgt gain of 18+ lbswe will cont the metformin for now 500 bidatorvas tat is back up to 80 mg will be seeing him next month [id number] Allen Putnam [facility] [address] [facility],[place] [address] 2021 16:10:43 2021 16:46:47 Hypertensive disorder [id number] I10 Well controlled with current meds but is sl elevated given his level of stress and hx of white coat syndrome Diabetes mellitus 775433 09 E11.9 a1c is pending was down to 7.3 was 7.9 was 6.8 knows he has to continue to get these numbers down has returned after a recent wgt gain of 18+ lbswe will cont the metformin for now 500 bidatorvas tat is back up to 80 mg will be seeing him next month Active or passive immunization [id number] Z23 advised he was due for Tdap, pneumonia shot, both shingles [id number] Allen Putnam [facility] [address] [facility],[place] [address] 12/11/2021 16:05:30 12/12/2021 08:48:51 Hypertensive disorder 53167391 I10 Well controlled with current meds but is sl elevated given his level of stress and hx of white coat syndrome cont the amlodipine Diabetes mellitus 525217 09 E11.9 a1c is pending was 7.5 down to 7.3 was 7.9 was 6.8 knows he has to continue to get these numbers down has returned after a recent wgt gain of 18+ lbswe will cont the metformin for now 500 bidatorvas tat is back up to 80 mg will be seeing him next month Hepatitis C screening 41 7527057 Z11.59 Active or passive immunization 092463075 Z23 advised he was due for Tdap, pneumonia shot, both shingles Hypercholesterolemia 136 76582 E78.00 stable with the atorvastat [id number] Allen Putnam [facility] [address] [facility],[place] [address] 03/18/2022 16:03:34 03/18/2022 16:44:54 Diabetes mellitus 78831282 E11.9 a1c is 10.2 was 7.5 i dont believe this is correct he has cont to drop wgt works out every daywe will have him repeat this testwe will cont the metformin for now 500 qdatorvast at is back up to 80 mg will be seeing him next month Cerebrovas cular accident [id number] I63.9 now feels good no issues active vigorous and with out major issuestill has the residual numbness from shoulder to waist and upper thigh more like a novacaine feeling Hypertensive disorder 38 680345 I10 Well controlled with current meds but is sl elevated given his level of stress and hx of white coat syndrome cont the amlodipine [id number] Allen Putnam DO [facility] [address] [facility], [place] [address] 07/08/2022 15:48:59 07/08/2022 16:14:14 Hypertensive disorder 04501617 I10 Well controlled with current meds but is sl elevated given his level of stress and hx of white coat syndrome cont the amlodipine Diabetes mellitus 40610743 waiting for a1c [id number] Allen Putnam DO [facility] [address] [facility] [address] [address] 11/05/2022 15:48:10 11/05/2022 17:01:04 Diabetes mellitus 06795663 E11.9 a1c s at 8.5 we had increased metformin to 1gm bid last time he has been very good with diet and no drinkingwi ll rechk in 2months Hypercholesterolemia 136 68509 E78.00 stable with the atorvastat will rechk next visit Hypertensive disorder 38 754068 I10 Well controlled with current meds but is sl elevated given his level of stress and hx of white coat syndrome cont the amlodipine [id number] Allen Putnam DO [facility] [address] [facility] [address] [address] 12/30/2022 08:24:06 12/31/2022 08:31:35 Hypercholesterolemia 21015713 E78.00 stable with the atorvastat LDL is 104 Hypertensive disorder 38 232946 I10 Well controlled with current meds but is sl elevated given his level of stress and hx of white coat syndrome cont the amlodipine bps at home are excellent and he is tolerating the meds Diabetes mellitus 316670 09 E11.9 a1c s at 7.8now and is much better than 8.5 we had increased metformin to 1gm bid last time he has been very good with diet and no drinking will rechk in 3 months [id number] Allen Putnam DO [facility] [address] [facility],[place] [facility] [place] [address] 01/07/2023 16:28:25 01/09/2023 08:36:02 Cervical spine sprain [id number] 9108 S13.4XXA agree with out of work until thursday, he should be able to return to work without restrictio ns as this appears to be muscular in nature however he will monitor andif need we will pursue further w/u [id number] Allen Putnam DO [facility] [address] [facility],[place] [employer] [address] 03/09/2023 09:59:29 03/09/2023 13:25:37 Hypercholesterolemia 32086131 E78.00 stable with the atorvastat LDL is 104 Diabetes mellitus 378875 09 E11.9 a1c s at 7.6 was prior 7.8 and is much better than 8.5 we had increased metformin to 1gm bid last time he has been very good with diet and no drinking will rechk in 3 months Hypertensive disorder 38 184818 I10 Well controlled with current meds but is sl elevated given his level of stress and hx of white coat syndrome cont the amlodipine bps at home are excellent and he is tolerating the meds Cervical spine sprain 36 54332961 9108 S13.4XXA doing well now with this Liver enzy mes level above reference range 673595446 R74.01 will stop the atorvastat rechk level in couple weeks if normal will try rosuvastat and recvhk cmp with aic in [id number] Allen Putnam DO [facility] [address] [facility],[place] [address] 04/14/2023 15:46:49 04/14/2023 16:35:41 Primary erectile dysfunction 077045456 N52.1 will cont to use viagra when necess Diabetes mellitus 548009 09 E11.9 a1c s at 7.6 was prior 7.8 and is much better than 8.5 we had increased metformin to 1gm bid last time he has been very good with diet and no drinking will rechk in 3 months Hypertensive disorder 38 647179 I10 Well controlled with current meds but is sl elevated given his level of stress and hx of white coat syndrome cont the amlodipine bps at home are excellent and he is tolerating the meds Liver enzy mes level above reference range 261599577 R74.01 believe was the boosters supplement s he was taking levels still climbing around the time of the second test he has stopped ethem since after US which was wnl [id number] Allen Putnam [facility] [address] [facility] [address] 06/23/2023 09:15:24 06/23/2023 10:11:46 Depression screening 990318615 Z13.31 Negative Screening Cerebrovas cular accident 069933505 I63.9 now feels good no issues active vigorous and with out major issuestill has the residual numbness from shoulder to waist and upper thigh more like a novacaine feeling Hypertensive disorder 38 550880 I10 Well controlled with current meds but is sl elevated given his level of stress and hx of white coat syndrome cont the amlodipine bps at home are excellent and he is tolerating the meds Diabetes mellitus 548246 09 E11.9 a1c s at 7.6 was prior 7.8 and is much better than 8.5 we had increased metformin to 1gm bid last time he has been very good with diet and no drinking will rechk in 3 months Right inguinal hernia 23 0243068 K40.90 new onset [id number] Allen Putnam [facility] [address] [facility],[place] [employer] [address] 08/12/2023 13:41:12 08/12/2023 14:47:32 Diverticulitis of colon 867015298 K57.32 [id number] Allen Putnam [facility] [address] [facility],[place] [address] 08/28/2023 15:57:53 08/28/2023 16:46:04 Abdominal pain 27203581 R10.9 better with the abx and is doing okwe will obtaine a ct scan to be sure [id number] Allen Tessy Putnam [facility] [address] [facility],[place] [address] 10/28/2023 15:46:39 10/28/2023 16:07:49 Diabetes mellitus 87799137 E11.9 a1c s at 7.6 was prior 7.8 and is much better than 8.5 we had increased metformin to 1gm bid last time he has been very good with diet and no drinking will rechk in 3 months Hypercholesterolemia 136 89723 E78.00 stable with the atorvastat LDL is 104 Hypertensive disorder 38 932040 I10 Well controlled with current meds but is sl elevated given his level of stress and hx of white coat syndrome cont the amlodipine bps at home are excellent and he is tolerating the meds [id number] Allen Putnam [facility] [address] [facility],[place] [address] 03/02/2024 15:54:43 03/02/2024 16:54:19 Diabetes mellitus 06703010 E11.9 a1c is pending was at 7.6 was prior 7.8 and is much better than 8.5 we had increased metformin to 1gm bid last time he has been very good with diet and no drinking will rechk in 3 months Hypertensive disorder 38 519969 I10 Well controlled with current meds but is sl elevated given his level of stress and hx of white coat syndrome cont the amlodipine bps at home are excellent and he is tolerating the meds Liver enzy mes level above reference range 114902292 R74.01 believe was the boosters supplement s he was taking levels still climbing around the time of the second test he has stopped ethem since after US which was wnl Health Concerns Section Related Observation LastModified by Organization Patricia foster LastModified Time None Recorded Concern Status LastModified by Organization Details LastModified Time None Recorded Advance Directives Directive None Recorded Payers Encounter Date Sequence Insurance Name Policy Number Policy Goff Covered Member ID Goff Member ID Guarantor Name 06/23/2023 1 [employer] [id number] 1 Galdino Ordonez [id number] Jon Ordonez 08/12/2023 1 [employer] [id number] 1 Galdino Olivares Mery [id number] Jon Mery 08/28/2023 1 [employer] [id number] 1 Galdino Olivares Mery [id number] Jon Mery 10/28/2023 1 [employer] [id number] 1 Galdino Olivares Mery [id number] Jon Mery 03/02/2024 1 [employer] [id number] 1 Galdino Olivares Mery [id number] Jon Mery Notes Date Note Type Note Provider Name and Address Organization Details Recorded Time 4 text/htm l here for chk up states that he was lifting and shoveling and felt something go in his right lower abdomen and now has a lump Allen Putnam DO [address] [place] [address], [id number], [facility] 06/23/2023 09:51:57 4 text/htm l relates began having pain in LUQ of abdomen for about a week and relates that he gets a bad cramp every time he eats maybe 15-20min after eating starts as a burning and then goes to a crampinglasts 1-3 hours no nausea no emesisno diarrhea doesnt matter what foodposs feverishable to drink fluids Allen Putnam DO [address] [place] [address], [phone], [facility] 08/12/2023 14:27:07 4 text/htm l states he is feeling a lot better overallno longer having pain like he was in the LUQ has stopped irritating foodsstates that he has no fever no nauea no diarrhea bowels are now goodtolerated the abx Allen Putnam DO [address] [place] [address], [phone], [facility] 08/28/2023 16:42:33 4 text/htm l Care Management - DiabetesReported bypatient.Self Care:seeing eye doctor yearly for dilated eye exam; checking feet regularly; normal range of home blood sugars (in the low 100s); no side effects from medications Associated Symptoms:symptoms are usually well controlled; no fatigue; no dizziness; no excessive sweating; no headaches; no confusion; no increased thirst; no increased appetite; no increased urination; no blurred vision; no numbness of feet; no calluses on feetCare Management - HypertensionReported bypatient.Self Care:not under emotional stress Severity:symptoms are improving; does not interfere with daily activities Associated Symptoms:no dizziness; no lightheadedness; no chest pain; no shortness of breath; no palpitations; no edema; no calf muscle cramps; no blurred vision; no confusion; no headaches; no fatigue here for rechk and is doing ok overallhad hernia donehas occ upper abdominal pain ache feels a little distended Allen Putnam DO [address] [place] [address], [phone], [facility] 10/28/2023 16:04:14 5 text/htm l Care Management - DiabetesReported bypatient.Self Care:seeing eye doctor yearly for dilated eye exam; checking feet regularly; normal range of home blood sugars (in the low 100s); no side effects from medications Associated Symptoms:symptoms are usually well controlled; no fatigue; no dizziness; no excessive sweating; no headaches; no confusion; no increased thirst; no increased appetite; no increased urination; no blurred vision; no numbness of feet; no calluses on feetCare Management - HypertensionReported bypatient.Self Care:not under emotional stress Severity:symptoms are improving; does not interfere with daily activities Associated Symptoms:no dizziness; no lightheadedness; no chest pain; no shortness of breath; no palpitations; no edema; no calf muscle cramps; no blurred vision; no confusion; no headaches; no fatigue her for rechk and is doing well no major issuesstates right thumb base has been quite sorewaking dily working out no lab done Allen Putnam DO [address] [place] [address], [phone], [facility] 03/02/2024 16:32:44
[2024-06-15 18:40] LABS: Alanine Aminotransferase 20 U/L (0-40); Albumin Level 4.3 g/dL (3.5-5.0); Alkaline Phosphatase 61 U/L (39-117); Aspartate Amino Transferase 33 U/L (5-37); Bilirubin Direct 0.1 mg/dL (0.0-0.5); Bilirubin Total 0.3 mg/dL (0.0-1.0); Total Protein 7.1 g/dL (6.5-8.0)
[2024-06-16 05:26] LABS: Estimated Average Glucose 237 mg/dL; Hemoglobin A1C 290.8877 umol/L; Hemoglobin A1c % 9.9 % (<6.0); Total Hemoglobin (HGBA1C) 3446.0397 umol/L
== END 2024-06-15 14:52 | disposition home or self-care (01) ==
LOC: HO.MANLDS 14:51
PROVIDERS: Visit Provider Internal Medicine
DX: R74.01 Elevation of levels of liver transaminase levels (principal); E11.9 Type 2 diabetes mellitus without complications
CPT/HCPCS: 36415; 80076; 83036

== ENCOUNTER 2024-08-03 08:12 | Outpatient (REF) | payer BC, SELFPAY ==
--- OUTSIDE RECORDS SUMMARY | 2024-08-03 08:26 | XMS_ITS | Data Portability ---
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) MDM HIGH MUST MEET 2 OUT OF 3 ELEMENTS: PROBLEMS, DATA OR RISK ELEMENT 1: PROBLEMS 1 OR MORE CHRONIC ILLNESS W/SEVERE EXACERBATION, PROGRESSION MAY REQUIRE HOSPITAL LEVEL CARE OR 1 ACUTE OR CHRONIC ILLNESS OR INJURY THAT POSES A THREAT TO LIFE OR BODILY FUNCTION ELEMENT 2: DATA: MUST MEET 2 OF 3 CATEGORIES CATEGORY 1 REVIEW OF PRIOR EXTERNAL NOTES REVIEW OF THE RESULTS ORDERING OF EACH TEST ASSESSMENT REQUIRING INDEPENDENT HISTORIAN(S) CATEGORY 2: INDEPENDENT INTERPRETATION OF TESTS BY ANOTHER PROVIDER/SPECIALI ST CATEGORY 3: DISCUSSION OF MGT OR TEST INTERPRETATION W/EXTERNAL PHYSICIAN/SPECIAL IST ELEMENT 3: RISK HIGH RISK OF MORBIDITY FROM ADDITIONAL DIAGNOSTIC TESTING OR TREATMENT PROVIDER MUST THOROUGHLY DOCUMENT EACH ELEMENT THAT IS COVERED Not available 06/20/2024 15:25:18 Plan of Treatment Reminders Order Date Submit Date Provider Last Modified By Organization Details Last Modified Time Details Appointments FOLLOW UP 15 2024 09:45A M DR PUTNAM Not available Not available Not available Lab HbA1c (hemoglob in A1c), blood 2023 024 [facility], [address] [place] [address], [address], 10/28/2023 16:09:08 CBC w/ auto diff 2023 024 [facility], [address] [place] [address], [address], 08/13/2023 11:05:35 ESR (erythroc yte sedimenta tion rate), blood 2023 024 [facility], [address] [place] [address], [place], [address], 08/12/2023 14:36:29 CMP, serum or plasma 2023 024 [facility], [address] [place] [address], [place], [address], 08/13/2023 11:05:35 Referral None recorded. Procedures None recorded. Surgeries None recorded. Imaging holter monitor - 72 hrs 2024 025 [facility] Central Scheduling (Not Breast), [address] [place] [address], [address], 06/21/2024 10:18:29 US, echocardi ogram 2024 025 [facility] Central Scheduling (Not Breast), [address] [place], [address], 07/05/2024 09:23:20 electroen cephalogr am 2024 025 [email or web address] Sheng Zuñiga MD, [address] [place] [address], [address], 07/01/2024 15:54:10 CT, abdomen, w/ contrast - Not Required Procedure codes: 06699Bclz Reference #: [id number] 1Resoluti on: Completed on 4 at 04:43 pm. Call ref #[id number] 11. 2023 024 [email or web address] Not available 09/11/2023 09:52:55 Medication Orders ciproflox acin 500 mg tablet 2023 024 [id number], [address], [place], [id number], 08/28/2023 16:02:49 metronida zole 500 mg tablet 2023 024 [id number], [address], [place], [id number], 08/28/2023 16:02:47 Patient TargetsNo targets recorded. Patient Instructions Encounter Date Encounter Id Patient Instructions Last Modified By Organization Details Last Modified Time 06/20/2024 [id number] fainting: care instructions Not available 06/20/2024 15:22:13 Reason for Referral None Reported. Results Created Date Observation Date Name Description Value Unit Range Abnormal Flag Note LastModifiedBy Organization Detail LastModifiedTime 11/13/19 24 11/13/2023 HbA1c (hemo globi n A1c), blood A1C 10.3 abnormal Not Available [facility] (Medical Records) [address] [place], [address], 11/16/2023 15:14:13 10/29/19 24 10/26/2023 CT, abdom en, w/ contr ast No observ ation record ed. [email or web address] [facility] [address] [place] [address], [address], 10/30/2023 08:41:38 07/01/19 25 06/30/2024 event monit or No observ ation record ed. [address], [address], 06/30/2024 12:58:13 07/12/19 25 07/08/2024 reid r monit or No observ ation record ed. [address], [address], 07/12/2024 09:08:16 Result Notes None recorded. Problems Name Problem SNOMED Code Status Onset Date Resolution Date Notes Provider Name and Address Organization Details Recorded Time Primary erectile dysfunct ion 872802951 Active 2017 Not Available [facility] 13:19:53 Labile hyperten arvind due to being in a clinical environm ent 377238276 Active 2019 Not Available [facility] 13:19:53 Hypercho lesterol emia 93679459 Active 2021 Allen Putnam DO [address] [place] [address], [address], [facility] 2 17:00:22 Acute sinusiti s 16240732 Completed 202203/09/2023 Allen Putnam DO [address] [place] [address], [address], [facility] 4 12:28:54 Headache 91284905 Completed 202203/09/2023 Allen Putnam DO [address] [place] [address], [address], [facility] 4 12:28:49 Cervical spine sprain 64620669868 108 Completed 202203/09/2023 Allen Putnam DO [address] [place] [address], [address], [facility] 4 12:28:42 Liver enzymes level above referenc e range 849605969 Active 2023 Allen Putnam DO [address] [place] [address], [address], [facility] 4 12:29:32 Hyperten sive disorder 22470876 Active 2017 Not Available [facility] 1 13:19:53 Diabetes mellitus 93206283 Active 2017 Not Available [facility] 1 13:19:53 Cerebrov ascular accident 010191069 Active 2017 Not Available [facility] 1 13:19:53 Right inguinal hernia 875289334 Active 2023 Allen Putnam DO [address] [place] [address], [address], [facility] 4 09:49:06 Divertic ulitis of colon 999340026 Active 2023 Allen Putnam DO [address] [place] [address], [address], [facility] 4 14:22:32 Abdomina l pain 50687285 Active 2023 Allen Putnam DO [address] [place] [address], [address], [facility] 4 16:39:40 Syncope and collapse 412498775 Active 2024 Allen Putnam DO [address] [place] [address], [address], [facility] 15:19:12 Problem Notes None recorded. Medical Equipment None Reported. [...] USE RESERVE PILLS FOR FUTURE TICK BITES 06/20 completed Not Available Not Available Not Available metformin 1,000 mg tablet TAKE 1 [...] 1 TABLET BY MOUTH ONCE DAILY NEEDED 06/20 completed Not Available Not Available Not Available sildenafil (bulk) 100 % powder 10/07 [...] Updated DateTime 5 175.26 cm 29.5 kg/m2 15076.4 7 g 96 % 96 % 76 /min 120 mm[Hg] 70 mm[Hg] [facility] 5 16:06:21 Date Recorded Body height Body mass index (BMI) Body weight Heart rate Oxygen saturation Oxygen saturation in Arterial blood by Pulse oximetry Systolic blood pressure Diastolic blood pressure Provider Name and Address Organization Details Last Updated DateTime 5 175.26 cm 27.9 kg/m2 58034.9 6 g 82 /min 95 % 95 % 142 mm[Hg] 76 mm[Hg] Allen Putnam, DO [address] [place], [address], [facility] 5 15:03:48 Date Recorded Body height Body mass index (BMI) Body weight Heart rate Oxygen saturation Oxygen saturation in Arterial blood by Pulse oximetry Systolic blood pressure Diastolic blood pressure Provider Name and Address Organization Details Last Updated DateTime 4 175.26 cm 29.5 kg/m2 87747.4 7 g 79 /min 97 % 97 % 140 mm[Hg] 70 mm[Hg] Betzy Howard [facility] 4 13:49:51 Date Recorded Body height Body mass index (BMI) Body weight Heart rate Oxygen saturation Oxygen saturation in Arterial blood by Pulse oximetry Systolic blood pressure Diastolic blood pressure Provider Name and Address Organization Details Last Updated DateTime 4 175.26 cm 31.6 kg/m2 71155.7 7 g 69 /min 95 % 95 % 136 mm[Hg] 82 mm[Hg] Shari Sanford [facility] 4 16:08:57 Date Recorded Body height Body mass index (BMI) Body weight Heart rate Oxygen saturation Oxygen saturation in Arterial blood by Pulse oximetry Systolic blood pressure Diastolic blood pressure Provider Name and Address Organization Details Last Updated DateTime 4 175.26 cm 29.5 kg/m2 33717.4 7 g 76 /min 98 % 98 % 126 mm[Hg] 76 mm[Hg] Jason Castaneda [facility] 4 15:53:54 Social History Question Answer Notes LastModified by Organizat ion Details LastModified Time Tobacco Smoking Status Former Smoker Not Available [facility] 12/13/2019 03:36:23 What Was The Date Of Your Most Recent Tobacco Screening? 06/20/2024 Information not available 06/20/2024 Sex: Unknown Functional Status Question Answer Note LastModified by Organization D etails LastModified Time Do you or have you ever used any other forms of tobacco or nicotine? No Information not available 12/11/2021 Mental Status None recorded. Family History Nothing Reported. Medical History No medical history recorded. Immunizations Vaccine Type Date Status Note Provider Nam e and Address Organization Details Recorded Time COVID-19, mRNA, LNP-S, PF, 30 mcg/0.3 mL dose 1 completed Not Available [facility] 01/27/2021 17:59:45 COVID-19, mRNA, LNP-S, PF, 30 mcg/0.3 mL dose 1 completed Allen Putnam DO [address] [place] [address], [address], [facility] 06/03/2021 15:57:22 COVID-19, mRNA, LNP-S, PF, 30 mcg/0.3 mL dose 1 completed Allen Putnam DO [address] [place] [address], [address], [facility] 06/03/2021 15:57:28 Tdap 9 completed Allen Putnam DO [address] [place] [address], [address], [facility] 06/03/2021 15:57:42 Influenza, split virus, quadrivalent, preservative 2 completed Allen Putnam DO [address] [place] [address], [address], [facility] 12/11/2021 16:43:01 COVID-19, mRNA, LNP-S, PF, 30 mcg/0.3 mL dose 2 completed Allen Putnam DO [address] [place] [address], [address], [facility] 12/11/2021 16:43:10 Past Encounters Encounter ID Performer Location Encounter Start Date Encounter Closed Date Diagnosis/Indication Diagnosis SNOMED-CT Code Diagnosis ICD10 Code Diagnosis Note [id number] Allen Putnam DO [facility] [address] [place] [address] [place] [address] 05/22/2017 10:26:37 05/22/2017 12:26:35 Diabetes mellitus 59430154 E11.9 waiting for a1c results Hypertensive disorder 38 663809 I10 home bp are excellent remain stable Cerebrovas cular accident 338049707 I63.9 still having issues with left parasthesi a Primary er ectile dysfunction 458339163 N52.1 [id number] Allen Putnam DO [facility] [address] [facility] [address] 08/28/2017 14:26:57 08/28/2017 16:40:00 Cerebrovascular accident 897638214 I63.9 now feels good no issues active vigorous and with out major issue Hypogonadism 35054481 E2 9.1 will repeat level [id number] Allen Putnam DO [facility] [address] [facility] [address] 10/05/2017 13:40:06 10/05/2017 14:29:11 Hypertensive disorder 19417204 I10 home bp are excellent remain stable will discontinu e the lisinopril and increase the amlodipine to 10mg Diabetes mellitus 228764 09 E11.9 a1c is 5.8 doing markedly well with 80 lb wgt loss will stop metformin and rechk in 3 mo Primary er ectile dysfunction 554111124 N52.1 will repeat the testostero ne and see if there is a drop as would be expected will try viagra 50mg [id number] Allen Putnam DO [facility] [address] [facility] [address] 11/06/2017 13:47:54 11/06/2017 14:16:52 Renewal of prescription 211342795 Z76.0 Primary er ectile dysfunction 324574246 N52.1 will plan to have pt see dr esthela pitts or wm saha as his ED is still having a major issue will hve him checked out his testostero ne level remained in 300's Hypertensive disorder 38 381513 I10 the amlodipine at10mg is working very well states is doing good but has not shown any improvemen t in libido [id number] Allen Putnam DO [facility] [address] [facility] [address],[place] [address] 02/17/2018 13:48:04 02/17/2018 19:17:16 Hypertensive disorder 77794150 I10 the amlodipine at10mg is working very well states is doing good but has not shown any improvemen t in libido Diabetes mellitus 493702 09 E11.9 a1c is 5.8 doing markedly well with 80 lb wgt loss will stop metformin and rechk in 3 mo Screening for malignant neoplasm of colon 373133364 Z12.11 Cervico-oc cipital neuralgia 99539982 M54.81 will treat conservati velbarbara doncelio believe this is migraine [id number] Allen Putnam [facility] [address] [facility] [address] [address] 06/11/2018 15:13:40 06/11/2018 15:33:01 Hypertensive disorder 69392801 I10 the amlodipine at10mg is working very well states is doing good but has not shown any improvemen t in libido Diabetes mellitus 892967 09 E11.9 a1c is not done yet and is doing markedly well with 80 lb wgt loss will stop metformin and rechk in 3 mo cont to have him stay as active as poss Cerebrovas cular accident 163206774 I63.9 now feels good no issues active vigorous and with out major issue Primary er ectile dysfunction 291912245 N52.1 will cont to use viagra when necess Lateral epicondylitis 20 9161874 M77.12 cont to tx conserv wearing brace [id number] Allen Putnam [facility] [address] [facility] [address],[place] [address] 10/01/2018 15:04:49 10/01/2018 15:57:54 Diabetes mellitus 58540054 E11.9 a1c is not done yet and is doing markedly well with 80 lb wgt loss will stop metformin and rechk in 3 mo cont to have him stay as active as poss Hypertensive disorder 38 783460 I10 the amlodipine at10mg is working very well states is doing good but has not shown any improvemen t in libido Primary er ectile dysfunction 880308812 N52.1 will cont to use viagra when necess Osteoarthritis of hip 23 9525534 M16.9 will need to see ne ortho will provide with back to work note [id number] Allen Putnam [facility] [address] [facility], [place] [address] 03/08/2019 10:37:13 03/08/2019 11:14:20 Pre-surgery evaluation 800079024 Z01.818 Per 2017 (revised) ACC guidelines patient is cleared for the proposed procedure. Patient may take his blood pressure medication the morning of the procedure. Hypertensive disorder 38 096434 I10 Well controlled with current meds Diabetes mellitus 596516 09 E11.9 A1C stable at 6.9 [id number] Allen Putnam [facility] [address] [facility], [place] [address] 07/27/2019 14:52:08 07/27/2019 15:24:41 Diabetes mellitus 26201273 E11.9 A1C is pending Hypertensive disorder 38 436785 I10 Well controlled with current meds [id number] Allen Putnam [facility] [address] [facility] [address] 12/09/2019 13:44:51 12/09/2019 14:08:36 Hypertensive disorder 86737428 I10 Well controlled with current meds Diabetes mellitus 351925 09 E11.9 A1C is pending Tendinitis of right wrist region 1258030961 9506239 M67.833 and prob dequervain s tenosynovi tis will start with diclofenac and a wrist plint spica if no better we will have referral to hand spec [id number] Allen Putnam [facility] [address] [facility] [address] 12/13/2019 15:57:13 12/13/2019 16:26:45 Cerebrovascular disease 57075115 I67.9 seems stable currently Late effec ts of cerebrovascular disease 444706170 I69.90 possible new RIND vs re-enervat ion [...] the ER he agrees Hypertensive disorder 38 006053 I10 Well controlled with current meds but is sl elevated given his level of stress and hx of white coat syndrome [id number] Allen Putnam DO [facility] [address] [facility] [address] 04/03/2020 15:24:01 04/03/2020 16:34:01 Hypertensive disorder 98845899 I10 Well controlled with current meds but is sl elevated given his level of stress and hx of white coat syndrome Diabetes mellitus 931402 09 E11.9 A1C is pending has not been done [id number] Allen Putnam DO [facility] [address] [facility] [address] 11/12/2020 14:16:19 11/12/2020 15:01:21 Cerebrovascular accident 800862597 I63.9 now feels good no issues active vigorous and with out major issue Diabetes mellitus 110152 09 E11.9 A1C is pending has not been done we will order Hypertensive disorder 38 532461 I10 Well controlled with current meds but is sl elevated given his level of stress and hx of white coat syndrome [id number] Allen Putnam DO [facility] [address] [facility] [address] 01/30/2021 08:29:28 01/30/2021 11:10:31 Diabetes mellitus 35981899 E11.9 has returned after a recent wgt gain of 18+ lbswe will cont the metformin for now 500 bidatorvas tat is back up to 80 mg will be seeing him next month Hypertensive disorder 38 614365 I10 Well controlled with current meds but is sl elevated given his level of stress and hx of white coat syndrome Benign par oxysmal positional vertigo 025479926 H81.13 still feels a little off but is much better than what he wasbut ER has set up a cardiac event recorder [id number] Allen Putnam DO [facility] [address] [facility] [address] 03/04/2021 08:18:44 03/05/2021 15:27:59 Diabetes mellitus 47470580 E11.9 a1c is 7.9 was 6.8 knows he has to get these numbers down has returned after a recent wgt gain of 18+ lbswe will cont the metformin for now 500 bidatorvas tat is back up to 80 mg will be seeing him next month Cerebrovas cular accident 144069038 I63.9 now feels good no issues active vigorous and with out major issuestill has the residual numbness from shoulder to waist and upper thigh more like a novacaine feeling Hypertensive disorder 38 602226 I10 Well controlled with current meds but is sl elevated given his level of stress and hx of white coat syndrome Primary er ectile dysfunction 568117509 N52.1 will cont to use viagra when necess [id number] Allen Putnam [facility] [address] [facility], [employer] [place] [address] 06/03/2021 15:53:28 06/03/2021 16:23:45 Hypertensive disorder 21274919 I10 Well controlled with current meds but is sl elevated given his level of stress and hx of white coat syndrome Diabetes mellitus 339566 09 E11.9 a1c is now down to 7.3 was 7.9 was 6.8 knows he has to continue to get these numbers down has returned after a recent wgt gain of 18+ lbswe will cont the metformin for now 500 bidatorvas tat is back up to 80 mg will be seeing him next month [id number] Allen Putnam [facility] [address] [facility], [employer] [place] [address] 2021 16:10:43 2021 16:46:47 Hypertensive disorder 79984004 I10 Well controlled with current meds but is sl elevated given his level of stress and hx of white coat syndrome Diabetes mellitus 154781 09 E11.9 a1c is pending was down to 7.3 was 7.9 was 6.8 knows he has to continue to get these numbers down has returned after a recent wgt gain of 18+ lbswe will cont the metformin for now 500 bidatorvas tat is back up to 80 mg will be seeing him next month Active or passive immunization 213142440 Z23 advised he was due for Tdap, pneumonia shot, both shingles [id number] Allen Putnam [facility] [address] [facility] [address] [address] 12/11/2021 16:05:30 12/12/2021 08:48:51 Hypertensive disorder 45532505 I10 Well controlled with current meds but is sl elevated given his level of stress and hx of white coat syndrome cont the amlodipine Diabetes mellitus 467684 09 E11.9 a1c is pending was 7.5 down to 7.3 was 7.9 was 6.8 knows he has to continue to get these numbers down has returned after a recent wgt gain of 18+ lbswe will cont the metformin for now 500 bidatorvas tat is back up to 80 mg will be seeing him next month Hepatitis C screening 41 4813950 Z11.59 Active or passive immunization 073934735 Z23 advised he was due for Tdap, pneumonia shot, both shingles Hypercholesterolemia 136 30159 E78.00 stable with the atorvastat [id number] Allen Putnam [facility] [address] [facility] [address] 03/18/2022 16:03:34 03/18/2022 16:44:54 Diabetes mellitus 18099430 E11.9 a1c is 10.2 was 7.5 i dont believe this is correct he has cont to drop wgt works out every daywe will have him repeat this testwe will cont the metformin for now 500 qdatorvast at is back up to 80 mg will be seeing him next month Cerebrovas cular accident 415747958 I63.9 now feels good no issues active vigorous and with out major issuestill has the residual numbness from shoulder to waist and upper thigh more like a novacaine feeling Hypertensive disorder 38 102482 I10 Well controlled with current meds but is sl elevated given his level of stress and hx of white coat syndrome cont the amlodipine [id number] Allen Putnam [facility] [address] [facility] [address] [place] [address],[place] [address] 07/08/2022 15:48:59 07/08/2022 16:14:14 Hypertensive disorder 48543784 I10 Well controlled with current meds but is sl elevated given his level of stress and hx of white coat syndrome cont the amlodipine Diabetes mellitus 14692750 waiting for a1c [id number] Allen Putnam [facility] [address] [facility] [address] 11/05/2022 15:48:10 11/05/2022 17:01:04 Diabetes mellitus 67213264 E11.9 a1c s at 8.5 we had increased metformin to 1gm bid last time he has been very good with diet and no drinkingwi ll rechk in 2months Hypercholesterolemia 136 16743 E78.00 stable with the atorvastat will rechk next visit Hypertensive disorder 38 263158 I10 Well controlled with current meds but is sl elevated given his level of stress and hx of white coat syndrome cont the amlodipine [id number] Allen Putnam [facility] [address] [facility] [address] 12/30/2022 08:24:06 12/31/2022 08:31:35 Hypercholesterolemia 90199202 E78.00 stable with the atorvastat LDL is 104 Hypertensive disorder 38 938756 I10 Well controlled with current meds but is sl elevated given his level of stress and hx of white coat syndrome cont the amlodipine bps at home are excellent and he is tolerating the meds Diabetes mellitus 060542 09 E11.9 a1c s at 7.8now and is much better than 8.5 we had increased metformin to 1gm bid last time he has been very good with diet and no drinking will rechk in 3 months [id number] Allen Putnam DO [facility] [address] [facility] [address] 01/07/2023 16:28:25 01/09/2023 08:36:02 Cervical spine sprain 5825293879 9108 S13.4XXA agree with out of work until thursday, he should be able to return to work without restrictio ns as this appears to be muscular in nature however he will monitor andif need we will pursue further w/u [id number] Allen Putnam [facility] [address] [facility],[place] [address] 03/09/2023 09:59:29 03/09/2023 13:25:37 Hypercholesterolemia [id number] E78.00 stable with the atorvastat LDL is 104 Diabetes mellitus 229391 09 E11.9 a1c s at 7.6 was prior 7.8 and is much better than 8.5 we had increased metformin to 1gm bid last time he has been very good with diet and no drinking will rechk in 3 months Hypertensive disorder 38 150450 I10 Well controlled with current meds but is sl elevated given his level of stress and hx of white coat syndrome cont the amlodipine bps at home are excellent and he is tolerating the meds Cervical spine sprain 36 [id number] 9108 S13.4XXA doing well now with this Liver enzy mes level above reference range 419977243 R74.01 will stop the atorvastat rechk level in couple weeks if normal will try rosuvastat and recvhk cmp with aic in [id number] Allen Putnam [facility] [address] [facility],[place] [address] 04/14/2023 15:46:49 04/14/2023 16:35:41 Primary erectile dysfunction [id number] N52.1 will cont to use viagra when necess Diabetes mellitus 476298 09 E11.9 a1c s at 7.6 was prior 7.8 and is much better than 8.5 we had increased metformin to 1gm bid last time he has been very good with diet and no drinking will rechk in 3 months Hypertensive disorder 38 057745 I10 Well controlled with current meds but is sl elevated given his level of stress and hx of white coat syndrome cont the amlodipine bps at home are excellent and he is tolerating the meds Liver enzy mes level above reference range 412810762 R74.01 believe was the boosters supplement s he was taking levels still climbing around the time of the second test he has stopped ethem since after US which was wnl [id number] Allen Putnam [facility] [address] [facility],[place] [address] 06/23/2023 09:15:24 06/23/2023 10:11:46 Depression screening [id number] Z13.31 Negative Screening Cerebrovas cular accident [id number] I63.9 now feels good no issues active vigorous and with out major issuestill has the residual numbness from shoulder to waist and upper thigh more like a novacaine feeling Hypertensive disorder 38 020445 I10 Well controlled with current meds but is sl elevated given his level of stress and hx of white coat syndrome cont the amlodipine bps at home are excellent and he is tolerating the meds Diabetes mellitus 977560 09 E11.9 a1c s at 7.6 was prior 7.8 and is much better than 8.5 we had increased metformin to 1gm bid last time he has been very good with diet and no drinking will rechk in 3 months Right inguinal hernia 23 0961611 K40.90 new onset [id number] Allen Putnam [facility] [address] [facility] [place] [address] 08/12/2023 13:41:12 08/12/2023 14:47:32 Diverticulitis of colon 346259282 K57.32 [id number] Allen Putnam [facility] [address] [facility],[place] [address] 08/28/2023 15:57:53 08/28/2023 16:46:04 Abdominal pain 48547245 R10.9 better with the abx and is doing okwe will obtaine a ct scan to be sure [id number] Allen Putnam [facility] [address] [facility],[place] [address] 10/28/2023 15:46:39 10/28/2023 16:07:49 Diabetes mellitus 52478015 E11.9 a1c s at 7.6 was prior 7.8 and is much better than 8.5 we had increased metformin to 1gm bid last time he has been very good with diet and no drinking will rechk in 3 months Hypercholesterolemia 136 85799 E78.00 stable with the atorvastat LDL is 104 Hypertensive disorder 38 089807 I10 Well controlled with current meds but is sl elevated given his level of stress and hx of white coat syndrome cont the amlodipine bps at home are excellent and he is tolerating the meds [id number] Allen Putnam [facility] [address] [facility],[place] [address] 03/02/2024 15:54:43 03/02/2024 16:54:19 Diabetes mellitus 29463237 E11.9 a1c is pending was at 7.6 was prior 7.8 and is much better than 8.5 we had increased metformin to 1gm bid last time he has been very good with diet and no drinking will rechk in 3 months Hypertensive disorder 38 282058 I10 Well controlled with current meds but is sl elevated given his level of stress and hx of white coat syndrome cont the amlodipine bps at home are excellent and he is tolerating the meds Liver enzy mes level above reference range 314825016 R74.01 believe was the boosters supplement s he was taking levels still climbing around the time of the second test he has stopped ethem since after US which was wnl [id number] [facility] [address] [facility],[place] [address] 06/20/2024 14:56:36 06/20/2024 16:45:53 Diabetes mellitus 97430013 E11.9 a1c is 9.9 Hypercholesterolemia 136 45562 E78.00 stable with the atorvastat LDL is 104 Hypertensive disorder 38 448242 I10 Well controlled with current meds but is sl elevated given his level of stress and hx of white coat syndrome cont the amlodipine bps at home are excellent and he is tolerating the meds Depression screening 171 360411 Z13.31 Negative Screening Syncope and collapse 309 511621 R55 Health Concerns Section Related Observation LastModified by Organization Detai ls LastModified Time None Recorded Concern Status LastModified by Organization Details LastModified Time None Recorded Advance Directives Directive None Recorded Payers Insurance Date Sequence Insurance Name Policy Number Policy Goff Covered Member ID Goff Member ID Guarantor Name 06/17/2024 1 [id number] 1 Galdino Ordonez [id number] Jon Ordonez 04/27/2023 [employer] [place] [employer] Jon Ordonez Notes Date Note Type Note Provider Name and Address Organization Details Recorded Time 4 text/htm l relates began having pain in LUQ of abdomen for about a week and relates that he gets a bad cramp every time he eats maybe 15-20min after eating starts as a burning and then goes to a crampinglasts 1-3 hours no nausea no emesisno diarrhea doesnt matter what foodposs feverishable to drink fluids Allen Putnam DO [address] [place], [address], [facility] 08/12/2023 14:27:07 4 text/htm l states he is feeling a lot better overallno longer having pain like he was in the LUQ has stopped irritating foodsstates that he has no fever no nauea no diarrhea bowels are now goodtolerated the abx Allen Putnam DO [address] [place], [address], [facility] 08/28/2023 16:42:33 4 text/htm l [...] feels a little distended Allen Putnam DO [address] [place], [address], [facility] 10/28/2023 16:04:14 5 text/htm l [...] out no lab done Allen Putnam DO [address] [place] [address], [address], [facility] 03/02/2024 16:32:44 5 text/htm l Care Management - DiabetesReported [...] no numbness of feet; no calluses on feet had an episode of syncope at a green party last thursdaythis occured around 3 pm had breakfast around 10 and had taken meds around 7 relates this was witnessed and he became suddenly unresponsive and then had syncopal episode was out for approx minute came to, then after a couple minutes he had another strange unresponsive episode with grunting and not responsive for apporx 20-30 secwork up in ER was negative including CT scan , ecg and labrelaeased home and has been fine since does have an headache Allen Putnam DO [address] [place] [address], [phone], [facility] 06/20/2024 15:32:14
[2024-08-03 13:44] LABS: Estimated Average Glucose 212 mg/dL
== END 2024-08-03 08:13 | disposition home or self-care (01) ==
LOC: HO.MANLDS 08:12
PROVIDERS: Visit Provider Internal Medicine
DX: E11.9 Type 2 diabetes mellitus without complications (principal)
CPT/HCPCS: 36415; 83036

== ENCOUNTER 2025-01-18 11:17 | Outpatient (REF) | payer BC, SELFPAY ==
--- OUTSIDE RECORDS SUMMARY | 2025-01-18 18:10 | XMS_ITS | Encounter Summary ---
Author Organization [facility] Address [address] [facility] [address] [place] [address] Phone Care Team Providers Care Technical Advisor Name Role Phone Allen Humphries Primary Care Provider [phone] LuisAllen lyn DO Unavailable Encounter Details Date Type Department Care Team (Late st Contact Info) Description 01/26/2021 Procedure Pass [facility], Ct Scan [facility] [address] [place] [address] Social History Tobacco Use Types Packs/Day Years Used Date Smoking Tobacco: Never Smokeless Tobacco: Never Alcohol Use Standard Drinks/Week Comments Yes 1 (1 standard drink = 0.6 oz pur e alcohol) rare Sex and Gender Information Value Date Recorded Sex Assigned at Male 06/28/2017 5:06 PM EDT Legal Sex Male 9:47 PM EDT Gender Identity Male 06/28/2017 5:06 PM EDT Sexual Orientation Straight 06/28/2017 5: 06 PM EDT documented as of this encounter Functional Status * Calculated C-SSRS Risk Score (Lifetime/Recent) Answer Date of Assessment Author No Risk Indicated 01/26/2021 6:22 PM Chiquis Olivier RN * [place] Suicide Severity Rating Scale (Screener/Recent Self-Report) Question Answer Date of Assessment Author 1. Wish to be (Past 1 Month) No 021 6:22 PM Chiquis Olivier RN 2. Non-Specific Active Suici zamzam Thoughts (Past 1 Month) No 01/26/2021 6:22 PM Chiquis Olivier RN 6. Suicidal Behavior (Lifetime) No 6:22 PM Chiquis Olivier RN documented as of this encounter Plan of Treatment Not on file documented as of this encounter Visit Diagnoses Not on filedocumented in this encounter Care Teams Technical Advisor Relationship Specialty Start Date End Date Allen Humphries DO [email or web address] PCP - General Internal Medicine 06/28/17 Allen Humphries DO [address] [place] [address] Insurance Assigned Provider 05/16/23 documented as of this encounter Additional Source Comments The information contained in this document represents components of the legal health record. It is not the complete legal health record.[facility]
--- OUTSIDE RECORDS SUMMARY | 2025-01-18 18:10 | XMS_ITS | Encounter Summary ---
Author Organization [facility] Address [address] [facility] [address] [place] [address] Phone Care Team Providers Care Scrubber Operator Name Role Phone LuisAllen lyn Primary Care Provider [phone] LuisAllen lyn Unavailable Encounter Details Date Type Department Care Team (Late st Contact Info) Description 01/26/2021 Procedure Pass [facility], [address] [address] Social History Tobacco Use Types Packs/Day Years [...] 01/26/2021 6:22 PM Chiquis Olivier RN * [place] Suicide Severity Rating Scale (Screener/Recent Self-Report) Question Answer Date of Assessment Author 1. Wish to be (Past 1 Month) No 021 6:22 PM Chiquis Olivier RN 2. Non-Specific Active Suici zamzam Thoughts (Past 1 Month) No 01/26/2021 6:22 PM Chiquis Olivier RN 6. Suicidal Behavior (Lifetime) No 1 6:22 PM Chiquis Olivier RN documented as of this encounter Plan of Treatment Not on file documented as of this encounter Visit Diagnoses Not on filedocumented in this encounter Care Teams Scrubber Operator Relationship Specialty Start Date End Date Allen Humphries DO .[employer] PCP - General Internal Medicine 06/28/17 Allen Humphries DO [address] [place] [address] Insurance Assigned Provider 05/16/23 documented as of this encounter Additional Source Comments The information contained in this document represents components of the legal health record. It is not the complete legal health record.[facility]
--- OUTSIDE RECORDS SUMMARY | 2025-01-18 18:10 | XMS_ITS | Encounter Summary ---
Author Organization [facility] Address [address] [facility] [address] [place] [address] Phone Care Team Providers Care Market Reporter Name Role Phone Allen Humphries DO Primary Care Provider [phone] Allen Humphries DO Unavailable Encounter Details Date Type Department Care Team (Late st Contact Info) Description 01/27/2021 Procedure Pass [facility] Cardiology [address] [place] [address] Social History Tobacco Use Types Packs/Day Years [...] PM EDT documented as of this encounter Plan of Treatment Not on file documented as of this encounter Visit Diagnoses Not on filedocumented in this encounter Care Teams Market Reporter Relationship Specialty Start Date End Date Allen Humphries DO PCP - General Internal Medicine 06/28/17 Allen Humphries DO [address] [place] [phone] (work) [email or web address] Insurance Assigned Provider 05/16/23 documented as of this encounter Additional Source Comments The information contained in this document represents components of the legal health record. It is not the complete legal health record.[facility]
--- OUTSIDE RECORDS SUMMARY | 2025-01-18 18:10 | XMS_ITS | Encounter Summary ---
Author Organization [facility] Address [address] [facility] [address] [place] [address] Phone Care Team Providers Care Quality Control Projectionist Name Role Phone Allen Humphries DO Primary Care Provider [phone] Allen Humphries DO Unavailable Encounter Details Date Type Department Care Team (Late st Contact Info) Description 01/26/2021 Procedure Pass [facility] [address] [place] [address] Social History Tobacco Use Types Packs/Day Years [...] 01/26/2021 6:22 PM Chiquis Olivier RN * [place] Suicide Severity Rating Scale (Screener/Recent Self-Report) Question Answer Date of Assessment Author 1. Wish to be (Past 1 Month) No 021 6:22 PM Chiquis Olivier RN 2. Non-Specific Active Suici zamzam Thoughts (Past 1 Month) No 01/26/2021 6:22 PM EST Dacri, Chiquis M, RN 6. Suicidal Behavior (Lifetime) No 1 6:22 PM EST Chiquis Kaiser RN documented as of this encounter Plan of Treatment Not on file documented as of this encounter Visit Diagnoses Not on filedocumented in this encounter Care Teams Quality Control Projectionist Relationship Specialty Start Date End Date Allen Humphries DO [email or web address] PCP - General Internal Medicine 06/28/17 Allen Humphries DO [address] [place] [address] [email or web address] Insurance Assigned Provider 05/16/23 documented as of this encounter Additional Source Comments The information contained in this document represents components of the legal health record. It is not the complete legal health record.[facility]
--- OUTSIDE RECORDS SUMMARY | 2025-01-18 18:10 | XMS_ITS | Encounter Summary ---
Author Organization [facility] Address [address] [employer] [facility] [address] [place] [address] Phone Care Team Providers Care Hinging Machine Operator Name Role Phone Allen Humphries DO Primary Care Provider [phone] Allen Humphries DO Unavailable Encounter Details Date Type Department Care Team (Latest Contact Info) Description 03/31/2023 Transcribe Orders Virtual Department [address] [place] [address] Jessica Naik PA [address] [place] [address] [place] [address] Elevated LFTs (Primary Dx) Social History Tobacco Use Types Packs/Day Years Used Date Smoking Tobacco: Never Smokeless Tobacco: Never Alcohol Use Standard Drinks/Week Comments Yes 1 (1 standard drink = 0.6 oz pur e alcohol) rare Education Answer Date Recorded Are you interested in more education? Not on wei e 06/06/2022 Are you concerned about learning? Not on file 06/06/2022 No 06/06/2022 No 06/06/2022 Digital Access Answer Date Recorded No 07/07/2022 No 07/07/2022 Reliable internet access at home? Not on file 07/07/2022 Device with a working camera? Not on file Sex and Gender Information Value Date Recorded Sex Assigned at Male 06/28/2017 5:06 PM EDT Legal Sex Male 9:47 PM EDT Gender Identity Male 06/28/2017 5:06 PM EDT Sexual Orientation Straight 06/28/2017 5: 06 PM EDT documented as of this encounter Plan of Treatment Not on file documented as of this encounter Results * US ABDOMEN COMPLETE (ADULT) (04/07/2023 9:24 AM EST) Anatomical Region Laterality Modality Abdomen Ultrasound 04/07/2023 9:46 AM EST Impressions 04/07/2023 9:54 AM EST 1. Enlargement of extrahepatic biliary system, possibly secondary to reservoir effect post cholecystectomy. 2. No intrahepatic biliary dilation and no abnormality of liver parenchyma. 3. Echogenic/twinkling foci within both kidneys, right greater than left, raising question of nonobstructing calculi. Importantly no hydronephrosis. 4. Otherwise normal abdominal ultrasound. Narrative 04/07/2023 9:54 AM EST US ABDOMEN COMPLETE (ADULT) Referring clinician's provided indication for this examination in Epic: Outside Radiology Order; elevated lft's TECHNIQUE: Abdominal Ultrasound Complete. COMPARISON: No prior abdominal imaging available. FINDINGS: Liver: Normal. No focal lesions. Main Portal Vein: Patent with normal direction of flow. Gallbladder: Surgically absent. No abnormality within the gallbladder fossa. Biliary: Enlarged common duct measuring up to 13 mm. No intrahepatic biliary dilation. Pancreas: Well seen and normal in size, shape and echogenicity. Spleen: Normal. No splenomegaly. Kidneys: Echogenic foci with twinkling artifact (suggestive of calculi) right upper and mid pole measuring up to 3 x 5 x 6 mm and 5 x 6 x 7 mm. Left-sided echogenic, twinkling focus measures 5 x 6 x 8 mm. No hydronephrosis. No discernible mass. Normal renal size, right kidney measuring 4.9 x 12.8 cm and left kidney measuring 7.1 x 12.6 cm. Aorta: Normal, where visualized sonographically. IVC: Normal intrahepatic segment. No ascites or focal fluid collection. No discernible lymphadenopathy. Procedure Note Severo Rincon MD - 04/07/2023 US ABDOMEN COMPLETE (ADULT) Referring clinician's provided indication for this examination in [facility]:Outside Radiology Order; elevated lft's TECHNIQUE: Abdominal Ultrasound Complete. COMPARISON: No prior abdominal imaging available. FINDINGS: Liver: Normal. No focal lesions. Main Portal Vein: Patent with normal direction of flow. Gallbladder: Surgically absent. No abnormality within the gallbladderfossa. Biliary: Enlarged common duct measuring up to 13 mm. No intrahepaticbiliary dilation. Pancreas: Well seen and normal in size, shape and echogenicity. Spleen: Normal. No splenomegaly. Kidneys: Echogenic foci with twinkling artifact (suggestive of calculi)right upper and mid pole measuring up to 3 x 5 x 6 mm and 5 x 6 x 7 mm.Left-sided echogenic, twinkling focus measures 5 x 6 x 8 mm. Nohydronephrosis. No discernible mass. Normal renal size, right kidneymeasuring 4.9 x 12.8 cm and left kidney measuring 7.1 x 12.6 cm. Aorta: Normal, where visualized sonographically. IVC: Normal intrahepatic segment. No ascites or focal fluid collection. No discernible lymphadenopathy. IMPRESSION: 1. Enlargement of extrahepatic biliary system, possibly secondary toreservoir effect post cholecystectomy. 2. No intrahepatic biliary dilation and no abnormality of liverparenchyma. 3. Echogenic/twinkling foci within both kidneys, right greater than left,raising question of nonobstructing calculi. Importantly nohydronephrosis. 4. Otherwise normal abdominal ultrasound. Jessica Sohan RAPP IMG US ABDOMEN Final Resul t documented in this encounter Visit Diagnoses Diagnosis Elevated LFTs- Primary Other abnormal blood chemistry Elevated LFTs Other abnormal blood chemistry documented in this encounter Care Teams Hinging Machine Operator Relationship Specialty Start Date End Date Allen Humphries DO [email or web address] PCP - General Internal Medicine 06/28/17 Allen Humphries DO [address] [place] [address] [email or web address] Insurance Assigned Provider 05/16/23 documented as of this encounter Additional Source Comments The information contained in this document represents components of the legal health record. It is not the complete legal health record.[facility]
--- OUTSIDE RECORDS SUMMARY | 2025-01-18 18:11 | XMS_ITS | Encounter Summary ---
Author Organization [facility] Address [address] [facility] [address] [place] [address] Phone Care Team Providers Care Public Policy Manager Name Role Phone Allen Humphries DO Primary Care Provider Allen Humphries DO Unavailable Encounter Details Date Type Department Care Team (Late st Contact Info) Description 04/21/2023 Ancillary Orders Non-Invasive Cardiology [address] [place] [address] Alphonso King MD [address] [place], [place] [id number] [email or web address] Cardiomyopathy, unspecified type (Primary Dx) Social History Tobacco Use Types [...] documented as of this encounter Results * EP Device Check / Follow Up (04/21/2023 4:17 PM EDT) Other Alphonso King MD CV CARDIAC SERVICES ORDERABL ES Final Result documented in this encounter Visit Diagnoses Diagnosis Cardiomyopathy, unspecified type- Primary documented in this encounter Care Teams Public Policy Manager Relationship Specialty Start Date End Date Allen Humphries DO [email or web address] PCP - General Internal Medicine 06/28/17 Allen Humphries DO [address] [place] [address] Insurance Assigned Provider 05/16/23 documented as of this encounter Additional Source Comments The information contained in this document represents components of the legal health record. It is not the complete legal health record.[facility]
--- OUTSIDE RECORDS SUMMARY | 2025-01-18 18:14 | XMS_ITS | Encounter Summary ---
Author Organization [facility] Address [address] [facility] [address] [place] [address] Phone Care Team Providers Care Foil Cutter Name Role Phone Allen Humphries Primary Care Provider [phone] LuisAllen lyn Unavailable Encounter Details Date Type Department Care Team (Late st Contact Info) Description 09/11/2023 Procedure Pass [facility], Ct Scan - [facility] [address] [place] [address] Social History Tobacco Use Types Packs/Day Years Used Date Smoking Tobacco: Never Smokeless Tobacco: Never Alcohol Use Standard Drinks/Week Comments Yes 0 (1 standard drink = 0.6 oz pur e alcohol) special occasions Education Answer Date Recorded Are you interested [...] on filedocumented in this encounter Care Teams Foil Cutter Relationship Specialty Start Date End Date Allen Humphries DO [email or web address] PCP - General Internal Medicine 06/28/17 Allen Humphries DO [address] [place] [address] Insurance Assigned Provider 05/16/23 documented as of this encounter Additional Source Comments The information contained in this document represents components of the legal health record. It is not the complete legal health record.[facility]
--- OUTSIDE RECORDS SUMMARY | 2025-01-18 18:14 | XMS_ITS | Encounter Summary ---
Author Organization [facility]ly [facility] Address [address] [facility] [address] [place] [address] Phone Care Team Providers Care Data Architect Manager Name Role Phone LuisAllen lyn Primary Care Provider [phone] Kristel Allen Elise Unavailable Reason for Referral * MRI/CAT Scan - Closed Specialty Diagnoses / Procedures Referred By Feliciano pickens Referred To Contact Radiology Diagnoses Seizure Procedures MRI Brain CHG MRI BRAIN COMBO CHG MRI BRAIN CONTRAST CHG MRI BRAIN Sheng Zuñiga MD [address] [place] [address], [address] [place] [address] Phone: tel: fax: [email or web address] Referral ID Status Reason Start Date Expiration Date Visits Re quested Visits Authorized [id number] Closed 08/11/2024 10/09/2024 1 1 Encounter Details Date Type Department Care Team (Latest Contact Info) Description 08/11/2024 Transcribe Orders Virtual Department [address] [place] [address] Sheng Zuñiga MD [address] [place] [address], [address] [place], [place] [id number] [email or web address] Seizure (Primary Dx) Social History Tobacco Use Types [...] documented as of this encounter Results * MRI BRAIN (SEIZURE) WITH AND WITHOUT CONTRAST (09/02/2024 12:34 PM EDT) Anatomical Region Laterality Modality Head Magnetic Resonan ce 09/02/2024 5:05 PM EDT Impressions 09/02/2024 5:10 PM EDT 1. No acute intracranial abnormality. No acute infarct, hemorrhage, or abnormal enhancement. 2. Mild progression of the white matter microangiopathic changes. 3. Paranasal sinus mucosal thickening. Narrative 09/02/2024 5:10 PM EDT MRI BRAIN (SEIZURE) WITH AND WITHOUT CONTRAST Referring clinician's provided indication for this examination in [facility]: Outside Radiology Order; seizure TECHNIQUE: Multi-sequence, multi-planar MRI of the brain was performed before and after intravenous contrast. COMPARISON: Head CT June 18, 2024. Brain MRI January 27, 2021. FINDINGS: Brain Parenchyma: The hippocampi are symmetric in size and demonstrate normal signal intensity bilaterally. There are numerous small T2 hyperintense foci in the white matter, mildly progressed since 2020. 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 No acute infarct detected. No abnormal brain enhancement. No mass-effect. Ventricular System and Extra-Axial Spaces: No hydrocephalus, midline shift, or extra-axial fluid collection. Extracranial Structures: Expected arterial flow signal is observed at the skull base. No orbital abnormality. There is mucosal thickening in the ethmoid and maxillary sinuses. The mastoids are grossly clear. Bones and extracranial soft tissues are unremarkable. Procedure Note Ricardo Moreno MD - 09/02/2024 MRI BRAIN (SEIZURE) WITH AND WITHOUT CONTRAST Referring clinician's provided indication for this examination in [facility]:Outside Radiology Order; seizure TECHNIQUE: Multi-sequence, multi-planar MRI of the brain was performedbefore and after intravenous contrast. COMPARISON: Head CT June 18, 2024. Brain MRI January 27, 2021. FINDINGS: Brain Parenchyma: The hippocampi are symmetric in size and demonstratenormal signal intensity bilaterally. There are numerous small [id number] foci in the white matter, mildly progressed since 2020.Redemonstrated is a chronic infarct in the right thalamus, stable. Noacute infarct detected. No abnormal brain enhancement. No mass-effect. Ventricular System and Extra-Axial Spaces: No hydrocephalus, midlineshift, or extra-axial fluid collection. Extracranial Structures: Expected arterial flow signal is observed at theskull base. No orbital abnormality. There is mucosal thickening in theethmoid and maxillary sinuses. The mastoids are grossly clear. Bones andextracranial soft tissues are unremarkable. IMPRESSION: 1. No acute intracranial abnormality. No acute infarct, hemorrhage, orabnormal enhancement. 2. Mild progression of the white matter microangiopathic changes. 3. Paranasal sinus mucosal thickening. Sheng Zuñiga MD IMG MR HEAD/NECK Final Resul t documented in this encounter Visit Diagnoses Diagnosis Seizure- Primary Other convulsions Seizure Other convulsions documented in this encounter Care Teams Data Architect Manager Relationship Specialty Start Date End Date Allen Humphries DO PCP - General Internal Medicine 06/28/17 Allen Humphries DO [address] [place] [address] [email or web address] Insurance Assigned Provider 05/16/23 documented as of this encounter Additional Source Comments The information contained in this document represents components of the legal health record. It is not the complete legal health record.[facility]
--- OUTSIDE RECORDS SUMMARY | 2025-01-18 18:14 | XMS_ITS | Encounter Summary ---
Author Organization [facility] Address [address] [facility] [address] [place] [address] Phone Care Team Providers Care Referral Specialist Name Role Phone Allen Humphries DO Primary Care Provider [phone] Allen Humphries DO Unavailable Encounter Details Date Type Department Care Team (Late st Contact Info) Description 06/28/2017 Procedure Pass [facility], Ct Scan - [address] [address] Social History Tobacco Use Types Packs/Day Years Used Date Smoking Tobacco: Never Smokeless Tobacco: Never Alcohol Use Standard Drinks/Week Comments No 0 (1 standard drink = 0.6 oz pur e alcohol) Sex and Gender Information Value Date Recorded Sex Assigned at Male 06/28/2017 5:06 PM EDT Legal Sex Male 9:47 PM EDT Gender Identity Male 06/28/2017 5:06 PM EDT Sexual Orientation Straight 06/28/2017 5: 06 PM EDT documented as of this encounter Plan of Treatment Not on file documented as of this encounter Visit Diagnoses Not on filedocumented in this encounter Care Teams Referral Specialist Relationship Specialty Start Date End Date Allen Humphries DO PCP - General Internal Medicine 06/28/17 Allen Humphries DO [address] [place] [address] [email or web address] Insurance Assigned Provider 05/16/23 documented as of this encounter Additional Source Comments The information contained in this document represents components of the legal health record. It is not the complete legal health record.[facility]
--- OUTSIDE RECORDS SUMMARY | 2025-01-18 18:14 | XMS_ITS | Encounter Summary ---
Author Organization [facility] Address [address] [facility] [address] [place] [address] Phone Care Team Providers Care Database Administration Manager Name Role Phone Allen Humphries Primary Care Provider [phone] Allen Humphries DO Unavailable Encounter Details Date Type Department Care Team (Late st Contact Info) Description 07/05/2024 Procedure Pass [facility] [address] [place] [address] Social History Tobacco Use Types Packs/Day Years [...] on filedocumented in this encounter Care Teams Database Administration Manager Relationship Specialty Start Date End Date Allen Humphries DO [email or web address] PCP - General Internal Medicine 06/28/17 Allen Humphries DO [address] [place] [address] [email or web address] Insurance Assigned Provider 05/16/23 documented as of this encounter Additional Source Comments The information contained in this document represents components of the legal health record. It is not the complete legal health record.[facility]
--- OUTSIDE RECORDS SUMMARY | 2025-01-18 18:14 | XMS_ITS | Encounter Summary ---
Author Organization [facility] Address [address] [facility] [address] [place] [address] Phone Care Team Providers Care School Manager Name Role Phone LuisAllen lyn Primary Care Provider [phone] Allen Humphries Unavailable Encounter Details Date Type Department Care Team (Late st Contact Info) Description 10/16/2023 Procedure Pass [place] Admitting Dept - Virtual Department [address] [place] [address] Social History Tobacco Use Types Packs/Day Years [...] on filedocumented in this encounter Care Teams School Manager Relationship Specialty Start Date End Date Allen Humphries DO [email or web address] PCP - General Internal Medicine 06/28/17 Allen Humphries DO [address] [place] [address] Insurance Assigned Provider 05/16/23 documented as of this encounter Additional Source Comments The information contained in this document represents components of the legal health record. It is not the complete legal health record.[facility]
--- OUTSIDE RECORDS SUMMARY | 2025-01-18 18:14 | XMS_ITS | Encounter Summary ---
Author Organization [facility] Address [address] [facility] [address] [place] [address] Phone Care Team Providers Care Science And Operations Officer Name Role Phone Allen Humphries DO Primary Care Provider [phone] Allen Humphries DO Unavailable Encounter Details Date Type Department Care Team (Latest Contact Info) Description 01/04/2018 Transcribe Orders [facility] [address] [place] [address] Gildardo Zarate MD [address] [place] [address], [address] [place] [address] [email or web address] Enlarged prostate with urinary obstruction (Primary Dx) Social History Tobacco Use Types [...] documented as of this encounter Results * PSA (screening) (01/04/2018 3:13 PM EST) PSA 0.71 0 - 4.00 ng/mL [facility] Blood 01/04/2018 3:13 PM EST 01/04/2018 3:16 PM EST us Gildardo Zarate MD LAB BLOOD BKR ORDERABLES Final Result [facility] [address] [place] [address] documented in this encounter Visit Diagnoses Diagnosis Enlarged prostate with urinary obstruction- Primary Hypertrophy of prostate with urinary obstruction and other lower urinary tract symptoms (LUTS) documented in this encounter Care Teams Science And Operations Officer Relationship Specialty Start Date End Date Allen Humphries DO PCP - General Internal Medicine 06/28/17 Allen Humphries DO [address] [place] [address] Insurance Assigned Provider 05/16/23 documented as of this encounter Additional Source Comments The information contained in this document represents components of the legal health record. It is not the complete legal health record.[facility]
--- OUTSIDE RECORDS SUMMARY | 2025-01-18 18:14 | XMS_ITS | Encounter Summary ---
Author Organization [facility] Address [address] [facility] [address] [place] [address] Phone Care Team Providers Care Overlay Plastician Name Role Phone Allen Humphries DO Primary Care Provider [phone] Allen Humphries DO Unavailable Reason for Referral * Outpatient Procedure - Closed Specialty Diagnoses / Procedures Referred By Feliciano pickens Referred To Contact Diagnoses Syncope and collapse Procedures Adult Echo TTE AR ECHO HEART XTHORACIC,COMPLETE W DOPPLER AR ECHO XTHORACIC,DAYAMI ANOM,COMPLETE AR ECHO XTHORACIC,DAYAMI ANOM,LIMITED AR ECHO HEART XTHORACIC,COMPLETE, W/O DOPPLER AR ECHO HEART XTHORACIC,LIMITED Allen Humphries DO [address] [place] [address] Phone: tel: fax: [email or web address] Referral ID Status Reason Start Date Expiration Date Visits Re quested Visits Authorized [id number] Closed 06/28/2024 08/26/2024 1 1 Encounter Details Date Type Department Care Team ([facility] st Contact Info) Description 07/05/2024 Transcribe Orders Virtual Department [address] [place] [address] Allen Humphries DO [address] [place] [address] Syncope and collapse (Primary Dx) Social History Tobacco Use Types [...] documented as of this encounter Results * TTE COMPREHENSIVE (08/03/2024 7:59 AM EDT) Body Surface Area 2.08 m2 Height 180 cm Weight 88 kg Systolic BP 150 mmHg Diastolic BP 75 mmHg Interventricular Septum Thickness 11 6 - 11 mm Left Ventricle Internal Diameter End Diastole 42 42 - 58 mm Left Ventricle Internal Diameter End Systole 34 <40 mm Left Ventricular Outflow Tract Diameter 22.0 mm LVOT VTI REST 205.0 mm Left Ventricular Outflow Tract Velocity 1.2 m/s Left Ventricular Outflow Tract Gradient at Rest 5 mmHg Left Ventricular Posterior Wall Thickness 11 6 - 11 mm Left Ventricle Ea Lateral Wave Speed 10.0 cm/s Left Ventricle Ea Septal Wave Speed 7.4 cm/s Mitral Valve Deceleration Time 296 ms Ejection Fraction 61 50 - 75 Percent Left Atrium Dimension Anterior-Posterior 33 15 - 40 mm Aortic Valve Mean Gradient 6 mmHg Aortic Valve Time Velocity Integral 293.0 mm Aortic Valve Peak Velocity 1.6 m/s Aortic Valve Peak Gradient 10 mmHg Aortic Arch Diameter 27 mm Aortic Sinus Diameter 39 <40 mm Ascending Aorta Diameter 35 <36 mm Inferior Vena Cava Diameter 13 <21 mm Left Ventricle A Wave Speed 77.6 cm/s Left Ventricle E Wave Speed 71.1 cm/s Right Ventricle Basal Diameter 35 25 - 41 mm Tricuspid Valve Peak Velocity 2.3 m/s Raw LV EF% 34 % MV E/E' Tissue Velocity Lateral 7.11 Relative Wall Thickness 0.52 0.22 - 0.42 Left Ventricle indexed to BSA 75.5 g/m2 MV E/A ratio 0.9 MV E/e' septal 9.61 Left Ventricle E/e' Average 8.4 Aortic Valve Prosthetic Peak Gradient 10 mmHg Aortic Valve Prosthetic Mean Gradient 6 mmHg Aortic Valve Sinus Index by BSA 19 mm/m2 Aorta Sinus Index by Height 2.17 cm/m Aorta Sinus CSA index by Height 6.63 cm2/m Ascending Aorta Index 17 mm/m2 Asc Aorta CSA Index by Height 5.34 cm2/m Right Ventricle to Right Atrium Pressure Gradient 21 mmHg Right Ventricle Peak Systolic Pressure (Assuming RAP 10) 31 mmHg MGB CV ECHO TV RVSP (ASSUMING RAP OF 5) 26 mmHg RVSP (Exclusive of RAP) 21 mmHg MGB CV AV DIMENSIONLESS INDEX (PEAK) - STRESS ECHO DOBUT - REST 0.75 Ascending Aorta Index 17 mm Aortic Sinus Index 19 mm Ascending Aorta Diameter 17 mm Aortic Valve Sinus Index 1 19 20 - 32 mm AO ASC DIAM BSA INDEX 16.83 Echo E/Ea 9.61 Left Atrial Volume Index 25 16 - 34 mL/m2 Right Ventricle TAPSE 19 >=17 mm Right Ventricle Pulse Doppler S Wave 13.9 >=9.5 cm/s Right Ventricle Mid Diameter 54 19 - 35 mm Right Ventricle Longitudinal Diameter 22 59 - 83 mm Left Atrial Volume 52 mL Left Atrial Volume Index by Height 29 mL/m Right Atrium Area 17 cm2 Right Atrium Area index 8 cm2/m2 Right Ventricle Peak Systolic Pressure 24 mmHg Right Atrium Pressure Estimated 3 mmHg Anatomical Region Laterality Modality Heart Ultrasound Narrative 08/03/2024 8:31 AM EDT Images from the original result were not included. 1. The indication for the study is syncope. The estimated ejection fraction is completely normal at 60 to 65%. Diastolic function is normal left ventricular thickness is mildly increased and regional wall motion is all normal. 2. Normal RV size and function. 3. There is a trileaflet aortic valve there is no evidence of aortic stenosis, the ascending aortic root is 35 mm. 4. Trace mitral and trace to mild tricuspid sufficiency, the PA pressure is normal. 5. Normal pericardium and when compared to the prior echocardiogram that was done on January 27, 2021, no significant change. Left Ventricle The left ventricle is normal in size. There is mild concentric hypertrophy. Left ventricular systolic function is at the lower limits of normal. The LV ejection fraction is 61% (calculated via biplane measurement). LV diastolic function appears within normal limits for age. The e' septal wave velocity is 7.4 cm/s. The e' lateral wave velocity is 10.0 cm/s. The average E/e' ratio is 8.4. Right Ventricle The right ventricle is normal in size. The RV basal dimension is 35 mm. The RV mid dimension is 54 mm. The RV longitudinal dimension is 22 mm. There is normal right ventricular systolic function. TAPSE is 19 mm. RV S' wave is 13.9 cm/s. Left Atrium The left atrium is normal in size. The left atrial anterior-posterior dimension is 33 mm. The left atrial volume index by BSA is 25 mL/m2. There are normal flow patterns in the pulmonary vein. Right Atrium The right atrium is normal in size. The right atrial area is 17 cm2. The IVC is normal in size. The IVC diameter is 13 mm. Mitral Valve The mitral valve appears normal. There is no mitral stenosis. There is trace mitral regurgitation. Tricuspid Valve The tricuspid valve appears normal. There is no tricuspid stenosis. There is trace to mild tricuspid regurgitation. The RV systolic pressure was calculated at 24 mmHg (using TR peak velocity of 2.3 m/s and assuming an RA pressure of 3 mmHg). Normal pulmonary pressure. Aortic Valve The aortic valve is tricuspid. There is no aortic stenosis. There is no aortic regurgitation. Pulmonic Valve The pulmonic valve appears normal. There is no pulmonic stenosis. There is trace pulmonic regurgitation. Pericardium There is no pericardial effusion. General Findings Technically adequate echocardiogram. Technique(s) used in the evaluation: Color flow Doppler and Spectral Doppler. The predominant rhythm during the study was sinus. Comparison Findings Compared to prior TTE on 01/27/2021, IAS/IVS The interatrial septum appears normal. us Allen A Bigda DO CV ECHO ORDERABLES Final Result documented in this encounter Visit Diagnoses Diagnosis Syncope and collapse- Primary Syncope and collapse documented in this encounter Care Teams Overlay Plastician Relationship Specialty Start Date End Date Allen Humphries DO [email or web address] PCP - General Internal Medicine 06/28/17 Allen Humphries DO [address] [place] [address] [email or web address] Insurance Assigned Provider 05/16/23 documented as of this encounter Additional Source Comments The information contained in this document represents components of the legal health record. It is not the complete legal health record.[facility]
--- OUTSIDE RECORDS SUMMARY | 2025-01-18 18:14 | XMS_ITS | Encounter Summary ---
Author Organization [facility] Address [address] [facility] [address] [place] [address] Phone Care Team Providers Care Claims Technician Name Role Phone LuisAllen lyn Primary Care Provider [phone] Allen Humphries Unavailable Encounter Details Date Type Department Care Team (Late st Contact Info) Description 06/21/2024 Procedure Pass Non-Invasive Cardiology [address] [place] [address] Social History Tobacco Use Types Packs/Day Years [...] on filedocumented in this encounter Care Teams Claims Technician Relationship Specialty Start Date End Date Allen Humphries DO [email or web address] PCP - General Internal Medicine 06/28/17 Allen Humphries DO [address] [place] [address] Insurance Assigned Provider 05/16/23 documented as of this encounter Additional Source Comments The information contained in this document represents components of the legal health record. It is not the complete legal health record.[facility]
--- OUTSIDE RECORDS SUMMARY | 2025-01-18 18:15 | XMS_ITS | Encounter Summary ---
Author Organization [facility] Address [address] [address] Phone Care Team Providers Care Business Intelligence Manager Name Role Phone Allen Humphries DO Primary Care Provider [phone] Allen Humphries DO Unavailable Encounter Details Date Type Department Care Team (Late st Contact Info) Description 04/11/2019 Procedure Pass [place] Admitting Dept - Virtual Department [address] [place] [address] Social History Tobacco Use Types Packs/Day Years [...] on filedocumented in this encounter Care Teams Business Intelligence Manager Relationship Specialty Start Date End Date Allen Humphries DO PCP - General Internal Medicine 06/28/17 Allen Humphries DO [address] [place] [address] [email or web address] Insurance Assigned Provider 05/16/23 documented as of this encounter Additional Source Comments The information contained in this document represents components of the legal health record. It is not the complete legal health record.[facility]
--- OUTSIDE RECORDS SUMMARY | 2025-01-18 18:15 | XMS_ITS | Clinical Summary ---
Author Organization [facility] Address [address] [place] [phone] Phone Care Team Providers Care Bone Char Operator Name Role Phone LuisAllen lyn Primary Care Provider [phone] LuisAllen lyn DO Unavailable Allergies Active Allergy Reactions Criticality Noted Date Comments Eggplant 10/08/2023 Itching throat Medications multivitamins-m inerals-folic kumh-kicbcyj-dv tein (COMPLETE SENIOR) 0.4-300-250 mg-mcg-mcg Tab Take 1 tablet by mouth daily. Active aspirin 81 MG EC tablet Take 81 mg by mouth daily. Active amLODIPine (NORVASC) 5 MG tablet Take 5 mg by mouth daily. 12/05/2019 Active metFORMIN (GLUCOPHAGE) 500 MG tablet Take 1 tablet (500 mg total) by mouth daily with breakfast. 10/16/2023 Active oxyCODONE 5 MG immediate release tablet Take 1-2 tablets (5-10 mg total) by mouth every 4 (four) hours as needed. Partial fill ok 12 tablet 10/16/2023 Active atorvastatin (LIPITOR) 10 MG tablet Take 1 tablet by mouth daily. Active tadalafiL (CIALIS, ADCIRCA) 20 MG tablet Take 1 tablet by mouth daily as needed. 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 Patient states he started out of the blue and this morning with the room spinning. He states that is on the left side. Symptoms worsen with standing sitting up or turning to the left side symptoms improved with laying down. CT angio head and neck revealed no acute intracranial abnormality. A lacunar infarct in the right thalamus is old, but new since 2018. No significant vascular abnormality in the head or neck DDX: Cerebellar infarct involving the posterior circulation versus BPPV -MRI brain -Echocardiogram -Continue aspirin 81 mg daily -High-dose statin -PT/OT -Hemoglobin A1c -Lipid panel -Speech/swallow eval -Upon receiving results of MRI and echocardiogram will need Tele Neuro consult -Labs to obtain in the morning: CBC, CMP, sed rate, CRP, TSH Primary hypertension 01/26/2021 Assessment & Plan (01/26/2021 6:40 PM EST): Patient is on amlodipine at home. We will continue amlodipine and will give if systolic blood pressure is greater than 180 as we will allow for permissive hypertension in the event of an infarct for the first 24 hours or until the MRI results. Resolved Problems Problem Noted Date Diagnosed Date Resolved Date Aftercare following left hip joint replacement surgery 04/11/2019 05/24/2019 Encounters Date Type Department Care Team Description 10/25/2024 Transcribe Orders [address] [address] Allen Humphries DO Diabetes mellitus without complication (Primary Dx); Fever, unspecified 10/24/2024 8:50 AM EDT - 10/24/2024 11:59 PM EDT Hospital Encounter [address] [address] Allen Humphries DO Discharge Disposition: Home or Self Care 10/24/2024 Transcribe Orders [address] [address] Allen Humphries DO Hay fever with asthma, unspecified asthma severity, with acute exacerbation (Primary Dx) from Last 3 Months Immunizations Immunization Administration Dates Next Due Influenza Quadrivalent Preservative Free IM 11/09 Tdap 10/31/2008 Social History Tobacco Use Types Packs/Day Years Used Date Smoking Tobacco: Never Smokeless Tobacco: Never Tobacco Cessation:Counseling Given: Not Answered Alcohol Use Standard Drinks/Week Comments Yes 0 [...] Orientation Straight 06/28/2017 5: 06 PM EDT Last Filed Vital Signs Vital Sign Reading Time Taken Comments Blood Pressure 150/75 12/01/2023 3:02 PM EDT Pulse 80 12/01/2023 3:02 PM EDT Temperature 36.8 C (98.2 F) 12/01/2023 3:02 PM EDT Respiratory Rate 18 12/01/2023 3:02 PM EDT Oxygen Saturation 97% 12/01/2023 3:02 PM EDT Inhaled Oxygen Concentration - - Weight 87.5 kg (193 lb) 08/29/2024 3:25 PM EDT Height 180.3 cm (5' 11 ) 08/29/2024 3:25 PM EDT Body Mass Index 26.92 08/29/2024 3:25 PM EDT Plan of Treatment Health Maintenance Due Date Last Done Comments DEPRESSION SCREENING 1972 HEPATITIS C SCREENING 1978 HIV ONE-TIME SCREENING (18-65 YEARS) 1978 PNEUMOCOCCAL VACCINES (50+ years) (1 of 2 - PCV) 09/11/1979 COLOGUARD 2005 FIT TEST 2005 FOBT 2005 SIGMOIDOSCOPY 2005 VIRTUAL COLONOSCOPY 2005 RSV VACCINE (1 - Risk 50-74 years 1-dose series) 2010 ZOSTER VACCINES (1 of 2) 2010 Adult Td,Tdap Booster 10/31/2018 10/31/2008 DIABETIC EYE EXAM 03/11/2024 URINE MICROALBUMIN/CREATININE RATIO 03/11/2024 07/08/2022, 07/08/2022, 09/06/2021, Additional history exists BLOOD PRESSURE 05/31/2024 12/01/2023 INFLUENZA VACCINE (#1) 2024 11/21/2021 COVID-19 VACCINE ( season) 2024 03/21/2023, 11/21/2021, 01/11/2021, Additional history exists CREATININE LEVEL 10/21/2024 10/22/2023, , 01/26/2021, Additional history exists HEMOGLOBIN A1C 01/23/2025 10/24/2024, 06/09, 04/22/2023, Additional history exists COLONOSCOPY 04/16/2028 04/16/2018 COLORECTAL CANCER SCREENING 04/16/2028 SMOKING STATUS SCREENING (Once After 26 Yrs) Completed 12/01/2023 HEPATITIS A VACCINES Aged Out No long er eligible based on patient's age to complete this topic HIB VACCINES Aged Out No longer eligi ble based on patient's age to complete this topic MENINGOCOCCAL VACCINES (ACWY) Aged Out No longer eligible based on patient's age to complete this topic MENINGOCOCCAL VACCINES (B) Aged Out N o longer eligible based on patient's age to complete this topic Medical Devices Implanted Type Area Aircraft Pneudraulic Systems Mechanic Device Identifier Shelf Expiration Date Model / Serial / Lot Hip 36mm 0 G7 Gurley Type 1 Standard - [id number] Implanted:Qty: 1 on 04/11/2019 by Jaciel Marks MD at [facility] STANDARD Left: Hip [employer] 02/16/2029 [id number] / / [id number] Mesh Surgical 15cm 8 Hernia Prolene Polypropylene Nonabsorbable Repair Bx/6ea - [id number] Implanted:Qty: 1 on 10/16/2023 by Lazaro Chiu MD at [facility] STANDARD Right: Inguinal JNJ [employer] / DIVISION OF J 02/09/2028 PMII / / [id number] Screws Right: Ankle Acetabular Shell 54mm Size F G7 Porous Plasma Paden [employer] Hole - [id number] Implanted:Qty: 1 on 04/11/2019 by Jaciel Marks MD at [facility] Left: Hip [employer] 11/13/2028 [id number] / / [id number] Hip Stem [id number] Bimetric Full Imal Profile Standard Alloy Porous Plasma Sprayed Titanium - [id number] Implanted:Qty: 1 on 04/11/2019 by Jaciel Marks MD at [facility] Left: Hip [employer] 12/11/2028 [id number] / / [id number] Hip Liner Sz F 36mm Plus 5mm Neutral G7 Arcomxl - [id number] Implanted:Qty: 1 on 04/11/2019 by Jaciel Marks MD at [facility] Left: Hip ELLE / DIV OF [employer] 06/28/2023 [id number] / / [id number] Procedures Procedure Name Priority Date/Time Associated Diagnosis Comments HEMOGLOBIN A1C Routine 10/24/2024 8:51 AM EDT Hay fever with asthma, unspecified asthma severity, with acute exacerbation PARVOVIRUS B19 ANTIBODIES, IGG, IGM Routine 10/24/2024 8:51 AM EDT Hay fever with asthma, unspecified asthma severity, with acute exacerbation COMPREHENSIVE METABOLIC PANEL (CMP) Routine 10/22/2023 9:13 AM EDT Essential (primary) hypertension HM COLONOSCOPY FOR RESULT ENTRY ONLY Routine 04/16/2018 from Last 3 Months or Most Recently Relevant to Health Maintenance Results * Parvovirus B19 antibodies, IgG, IgM (10/24/2024 8:51 AM EDT) PARVO B19 IGG Negative Negative [facility] MED/PATH [address] SARA Burleson IGM Negative Negative [facility] EPT LAB MED/PATH [address] [facility] SARA Burleson INTERP SEE NOTE [facility] Comment: (NOTE) No antibody to Parvovirus B19 detected. Acute infection cannot be ruled out as antibody levels may be below the limit of detection. If clinically indicated, a second serum should be submitted in 14-21 days. ADDITIONAL INFORMATION This test has been modified from the photograph inspector's instructions. Its performance characteristics were determined by [facility] in a manner consistent with CLIA requirements. This test has not been cleared or approved by the U.S. Food and Drug Administration. Blood 10/24/2024 8:51 AM EDT 10/24/2024 8:53 AM EDT us Allen A [employer] DO LAB BLOOD ORDERABLES Final Resul t Performing Organization Address City/[facility]/ZIP Co de Phone Number [facility] [place] [address] * (ABNORMAL) Hemoglobin A1c (10/24/2024 8:51 AM EDT) HEMOGLOBIN A1C 8.1(H) 4.3 - 5.8 % [facility] Blood 10/24/2024 8:51 AM EDT 10/24/2024 8:53 AM EDT us Allen A [employer] DO LAB BLOOD BKR ORDERABLES Final R esult Performing Organization Address [facility] Co de Phone Number [address] [address] * (ABNORMAL) Comprehensive metabolic panel (10/22/2023 9:13 AM EDT) SODIUM 136 133 - 146 mmol/L [facility] POTASSIUM 4.4 3.3 - 5.1 mmol/L [facility] CHLORIDE 100 96 - 108 mmol/L [facility] CO2 23 21 - 35 mmol/L [facility] BUN 23(H) 6 - 19 mg/dL [facility] CREATININE 0.70 0.5 - 1.5 mg/dL [facility] GLUCOSE 339(H) 70 - 99 mg/dL [facility] ALBUMIN 4.2 3.9 - 4.8 g/dL [facility] TOTAL PROTEIN 7.6 6.5 - 8.0 g/dL [facility] CALCIUM 9.1 8.4 - 10.3 mg/dL [facility] ALKALINE PHOSPHATASE 76 39 - 117 U/L [facility] TOTAL BILIRUBIN 0.4 0.0 - 1.2 mg/dL [facility] AST 22 0 - 37 U/L [facility] ALT 12 0 - 40 U/L [facility] GLOBULIN 3.4 1 - 4.8 g/dL [facility] EGFR 104 >59 mL/min/1.7 3m2 [facility] Comment:Estimated glomerular filtration rate calculated using the CKD-EPI refit equation. ANION GAP 17 10 - 20 mmol/L [facility] Blood 10/22/2023 9:13 AM EDT 10/22/2023 9:15 AM EDT us Allen Humphries DO LAB BLOOD BKR ORDERABLES Final R esult [facility] [address] [place] [address] * COLONOSCOPY FOR RESULT ENTRY ONLY (04/16/2018) Colonoscopy External Historical Provider HEALTH MAINTENANCE Final Result from Last 3 Months or Most Recently Relevant to Health Maintenance Insurance [facility] PPO BLUE [place] OUT OF STATE P[place]UE [place] PPO BLUE [place] OUT OF STATE PPO PPO PPO [facility] OUT OF STATE PPO [facility] OUT OF [facility] PPO [facility] OUT OF STATE PPO Advance Directives For more information, please contact: [phone] (9AM - 5PM [place], Thursday-Thursday) * Full Code (Latest Code Status on File) Date Activated Date Inactivated Comments 01/26/2021 6:37 PM Question Answer Comments Code Status Confirmed With: Patient * Full Code (Presumed) Date Activated Date Inactivated Comments 04/11/2019 12:02 PM 04/13/2019 1:15 PM * Full Code (Presumed) Date Activated Date Inactivated Comments 04/11/2019 6:09 AM 04/11/2019 12:02 PM Care Teams Bone Char Operator Relationship Specialty Start Date End Date Allen Humphries DO [email or web address] PCP - General Internal Medicine 06/28/17 Allen Humphries DO [address] [place] [id number] Insurance Assigned Provider 05/16/23 Additional Source Comments The information contained in this document represents components of the legal health record. It is not the complete legal health record.[facility]
--- OUTSIDE RECORDS SUMMARY | 2025-01-18 18:15 | XMS_ITS | Encounter Summary ---
Author Organization [facility] Address [address] [place] [phone] Phone Care Team Providers Care Advanced Practice Registered Nurse Name Role Phone LuisAllen lyn Primary Care Provider [phone] LuisAllen lyn Unavailable Encounter Details Date Type Department Care Team (Late st Contact Info) Description 08/11/2024 Procedure Pass [facility], [address] [address] Social History Tobacco Use Types Packs/Day Years [...] on filedocumented in this encounter Care Teams Advanced Practice Registered Nurse Relationship Specialty Start Date End Date Allen Humphries DO [email or web address] PCP - General Internal Medicine 06/28/17 Allen Humphries DO [address] [place] [address] Insurance Assigned Provider 05/16/23 documented as of this encounter Additional Source Comments The information contained in this document represents components of the legal health record. It is not the complete legal health record.[facility]
== END 2025-01-18 11:18 ==
LOC: HO.MANLDS 11:17
PROVIDERS: Visit Provider Internal Medicine
DX: E11.9 Type 2 diabetes mellitus without complications (principal)
CPT/HCPCS: 36415; 83036